=== PATIENT | female | born 1950 | race Two or more races ===

== ENCOUNTER 2018-03-01 22:03 | Emergency (ER) | payer MEDICAID ==
[~2018-03-01] VITALS: Ht 157.5 cm; Wt 54.0 kg
[2018-03-01] MEDS ORDERED: NAPROXEN500 M2 ORAL (22:15)
[2018-03-01] MEDS ORDERED: VITAMIN B COMP1 EAC2 ORAL (22:15)
[2018-03-01] MEDS ORDERED: LISINOPRIL5 MG ORAL (22:15)
[2018-03-01] MEDS ORDERED: METFORMIN HCL500 M1 ORAL (22:15)
--- NOTE | 2018-03-01 22:25 | Emergency Room Report ---
History of Present Illness General Chief Complaint: Hypertension Source: Patient, Family Member Present Illness HPI This is 67-year-old female with history hypertension diabetes. She presents with chief complaint of high blood pressure and right neck pain. Her blood pressure usually runs around 1 5160 systolic at home. Today went up to 180- 200. She also has his neck and right ear pain for the last 2 weeks. Unknown etiology. No runny nose no congestion. Pain is throbbing in nature. Radiating up to her head. She has no chest pain, shortness of breath, diaphoresis, abdominal pain or hematuria. Has not take anything for it. She is only taking 10 mg of lisinopril for her blood pressure. Has been on it for 6 weeks. Allergies: Coded Allergies: No Known Allergies (Unverified , 03/01/18) Patient History Past Medical History: see triage record, old chart reviewed, DM, HTN Past Surgical History: other Pertinent Family History: none Social History: Denies: smoking Now: No Immunizations: other Reviewed Nursing Documentation: PMH: Agreed; PSxH: Agreed Nursing Documentation-PMH Past Medical History: No History, Except For Hx Hypertension: Yes Hx Diabetes: Yes Review of Systems Eye: Denies: eye pain, blurred vision ENT: Reports: ear pain; Denies: nose congestion, throat swelling Respiratory: Denies: cough, shortness of breath Cardiovascular: Denies: chest pain, palpitations Gastrointestinal: Denies: abdominal pain, diarrhea, nausea, vomiting Musculoskeletal: Denies: back pain, joint pain Skin: Denies: rash Neurological: Reports: headache; Denies: numbness Endocrine: Denies: increased thirst, increased urine Hematologic/Lymphatic: Denies: easy bruising All Other Systems: negative except mentioned in HPI Physical Exam Vital Signs Date Time Temp Pulse Resp B/P (MAP) Pulse Ox O2 Delivery O2 Flow Rate FiO2 03/01/18 22:08 97.9 71 16 206/84 98 Room Air 97.9 vitals with high blood pressure Sp02 EP Interpretation: reviewed, normal General Appearance: well appearing, no apparent distress, alert Head: normocephalic, atraumatic Eyes: bilateral eye PERRL, bilateral eye EOMI ENT: hearing grossly normal, normal pharynx, other - no palpable mass over the temporal area. No tenderness over the mastoid area Neck: full range of motion, supple, no meningismus Respiratory: chest non-tender, lungs clear, normal breath sounds Cardiovascular #1: regular rate, rhythm, no murmur Gastrointestinal: normal bowel sounds, non tender, no mass, no organomegaly, no bruit, non-distended Musculoskeletal: back normal, gait/station normal, normal range of motion Psychiatric: mood/affect normal Skin: warm/dry Medical Decision Making Diagnostic Impression: Primary Impression: Hypertension Qualified Codes: I10 - Essential (primary) hypertension Additional Impressions: Hyperglycemia due to type 2 diabetes mellitus Qualified Codes: E11.65 - Type 2 diabetes mellitus with hyperglycemia Neck pain on right side UTI (urinary tract infection) Qualified Codes: N30.00 - Acute cystitis without hematuria ER Course Patient with uncontrolled hypertension and diabetes. Better now after IV fluid and medicine. No evidence of endorgan damage. We will discharge home. Last Vital Signs Date Time Temp Pulse Resp B/P (MAP) Pulse Ox O2 Delivery O2 Flow Rate FiO2 03/01/18 22:08 97.9 71 16 206/84 98 Room Air 97.9 Status: improved Disposition: HOME, SELF-CARE Condition: Stable Scripts Cephalexin* (KEFLEX*) 500 Mg Capsule 500 MG ORAL TID, #21 CAP Prov: DOLORES CANAS M.D. 03/02/18 Ibuprofen* (MOTRIN*) 600 Mg Tablet 600 MG ORAL THREE TIMES A DAY, #30 TAB 0 Refills Prov: DOLORES CANAS M.D. 03/02/18 Metformin Hcl* (METFORMIN HCL*) 850 Mg Tablet 850 MG ORAL BID, #60 TAB Prov: DOLORES CANAS M.D. 03/02/18 Lisinopril (LISINOPRIL*) 20 Mg Tablet 20 MG ORAL DAILY, #30 TAB Prov: DOLORES CANAS M.D. 03/02/18 Additional Instructions: Follow-up with your doctor in 7 days. Return if symptom worsen. DOLORES CANAS M.D. March 01, 2018 22:25
[2018-03-01 22:30] VITALS: BP 209/88
[2018-03-01] MEDS ORDERED: Ketorolac 30mg Inj IV ONE (22:30)
[2018-03-01 23:13] LABS: BILIRUBIN, URINE NEGATIVE (NEGATIVE); COLOR,URINE PALE YELLOW; GLUCOSE, URINE (UA) 4+ (NEGATIVE); KETONES,URINE NEGATIVE (NEGATIVE); LEUKOCYTE ESTERASE ,URINE 3+ (NEGATIVE); NITRITE,URINE NEGATIVE (NEGATIVE); PH,URINE 5 (4.5-8.0); PROTEIN,URINE NEGATIVE (NEGATIVE); UROBILINOGEN,URINE NORMAL MG/DL (0.0-1.0)
[2018-03-01 23:14] LABS: EOSINOPHILS % (AUTO) 3.2 % (0.0-3.0); HEMATOCRIT 34.8 % (37.0-47.0); HEMOGLOBIN 12.2 G/DL (12.0-16.0); LYMPHOCYTES % (AUTO) 33.4 % (20.0-45.0); MEAN CORPUSCULAR VOLUME 87 FL (80-99); MONOCYTES % (AUTO) 7.9 % (1.0-10.0); NEUTROPHILS % (AUTO) 54.6 % (45.0-75.0); PLATELET COUNT 265 K/UL (150-450)
[2018-03-01 23:16] LABS: ANION GAP 6 mmol/L (5-15); BLOOD UREA NITROGEN 31 mg/dL (7-18); CALCIUM 9.1 MG/DL (8.5-10.1); CARBON DIOXIDE 30 MMOL/L (21-32); CHLORIDE 97 MMOL/L (98-107); CREATININE 1.1 MG/DL (0.55-1.30); POTASSIUM 3.9 MMOL/L (3.5-5.1); SODIUM 133 MMOL/L (136-145)
[2018-03-01 23:25] LABS: APPEARANCE,URINE CLOUDY
[2018-03-01 23:30] VITALS: BP 188/82
[2018-03-01] MEDS ORDERED: cefTRIAXone 1 GM in NS 55 ML IVPB ONE (23:45)
[2018-03-02] MEDS ORDERED: LISINOPRIL20 MG ORAL (00:18)
[2018-03-02] MEDS ORDERED: METFORMIN HCL850 M1 ORAL (00:18)
[2018-03-02] MEDS ORDERED: IBUPROFEN600 MG ORAL (00:18)
[2018-03-02] MEDS ORDERED: CEPHALEXIN500 MG ORAL (00:19)
[2018-03-02 00:30] VITALS: BP 124/51
[2018-03-02 00:45] VITALS: BP 124/51
[2018-03-05] MEDS ORDERED: NITROFURANTOIN100 M2 ORAL (14:40)
== END 2018-03-02 00:45 | disposition home or self-care (01) ==
LOC: EMR 22:29
DX: I10 Essential (primary) hypertension (principal); E11.65 Type 2 diabetes mellitus with hyperglycemia; M54.2 Cervicalgia; N39.0 Urinary tract infection, site not specified
CPT/HCPCS: 36415; 80048; 81001; 82962; 85025; 85651; 87086; 87181; 96361; 96374; 96375; 99284; J0360; J0696; J1815; J1885

== ENCOUNTER 2020-06-26 10:37 | Inpatient (IN) | payer MEDICAID ==
[~2020-06-26] VITALS: Ht 154.9 cm; Wt 49.0 kg
[~2020-06-26 10:37] MED LIST: AMLODIPINE BESY10 MG ORAL; AMLODIPINE BESYL5 MG ORAL; CEPHALEXIN500 MG ORAL; IBUPROFEN600 MG ORAL; LIDODERM700 M1 TOPIC; LISINOPRIL20 MG ORAL; LISINOPRIL5 MG ORAL; METFORMIN HCL1000 M1 ORAL; METFORMIN HCL500 M1 ORAL; METFORMIN HCL850 M1 ORAL; NAPROXEN250 MG ORAL; NAPROXEN500 M2 ORAL; NITROFURANTOIN100 M2 ORAL; ROBAXIN-750750 MG PO; VITAMIN B COMP1 EAC2 ORAL
[2020-06-26 10:50] VITALS: BP 167/65
--- NOTE | 2020-06-26 10:53 | Emergency Room Report ---
History of Present Illness General Chief Complaint: Toothache Source: Patient, Family Member Present Illness HPI 62-year-old female with past medical history of DM hypertension presents at the urging of her dental secondary to concern for L facial cellulitis refractory to oral antibiotics. Patient states that she has been having left facial swelling despite using antibiotics (amoxicillin) that her dentist gave her. It was recently changed to keflex. She went to the dentist today (Dr Quan from [facility] [phone]) who urged her to go to the ER for further evaluation. She states that she has pain with chewing and difficulty opening her mouth. Otherwise no shortness of breath, fever, chills, nausea, vomiting, stridor, drooling, or hoarse voice. Denies cough, chest pain, hemoptysis, melena or hematochezia. The patient's symptoms were gradual onset, severity was moderate, duration since 2 weeks. Quality: Aching Past medical history: Hypertension, DM Past surgical history: Dental extraction Smoking: Denies Alcohol use: Denies Drug use: Denies Review of systems: CONST: No fevers or chills, No night sweats PULMONARY: No productive cough, No shortness of breath CARDIAC: No chest pain, No palpitations GI: No vomiting, No diarrhea , No melena_or_BRBPR : No dysuria, No hematuria, No discharge NEURO: No new_focal_weakness_or_numbness, No confusion, No vision changes 14 point Review of Systems is otherwise negative except per HPI Physical Exam: GENERAL: Awake_alert_ nontoxic, no acute distress Spo2 98% on RA -normal EYES: Extraocular muscles are intact. Conjunctivae clear. Lids without swelling ENT: External nose and ear normal_in_appearance. Oropharynx clear. Head_ atraumatic, Moist_oral_mucosa L facial cellulitis Mild trismus. Left facial swelling. No submandibular swelling. No submandibular crepitus. Tolerating secretions. No drooling. No hoarse voice or stridor. Speaks in full and complete sentences. NECK: No JVD. No meningismus. No thyromegaly. Supple. Trachea midline RESP: Normal respiratory effort. Symmetric rise. No stridor. Clear_to_ auscultation_No_rales_No_wheezes CARDIAC: Regular rate and regular rhytm. No_significant pedal edema. ABDOMEN: Soft. Nondistended. Nontender_No_rebound_or_guarding. MSK: Normal muscle tone, without rigidity. Extremities without asymmetric deformity or swelling. SKIN: Warm and dry. No visible cyanosis or pallor NEUROLOGIC: Alert, oriented x3. Motor_and_sensation_grossly_intact. No truncal ataxia. Gait_normal Psych: Normal mood and affect, normal judgment and insight - COORDINATION OF CARE Case was discussed with: Patient , Patient's Family Any labs and imaging that were ordered were interpreted as part of the medical decision making: Medical Decision Making/Plan: Differential diagnosis: Left facial swelling secondary to mastoiditis versus dental abscess versus facial abscess versus parotitis. Initial vital signs are unremarkable. Airway is intact, however patient has mild trismus There is no evidence of deep space neck infection or submandibular edema/ swelling. There is no evidence at this time of Rey's angina. Airway is intact I called patient's dentist Dr Quan at [facility] [phone]. States patient had dental extraction 5 days ago. Pt came today and still had swelling and pain of lower left jaw despite keflex ABx. Labs show no severe leukocytosis. CT scan of the maxillofacial shows no discrete abscess, oseto. It does show myositis and lymphadenopathy +/- myositis. ED intervention included clindamycin for anaerobic coverage, pain control, and fluids. Due to failure of outpatient treatment, will admit to IM DR Phillips for IV antibiotics. Allergies: Coded Allergies: No Known Allergies (Unverified , 03/01/18) COVID-19 Screening Contact w/high risk pt: No Experienced COVID-19 symptoms?: No COVID-19 Testing performed PROJECT GEOPHYSICIST: No Nursing Documentation-PMH Hx Hypertension: Yes Hx Asthma: Yes Hx Diabetes: Yes Physical Exam Vital Signs Date Time Temp Pulse Resp B/P (MAP) Pulse Ox O2 Delivery O2 Flow Rate FiO2 06/26/20 10:43 98.4 68 17 167/65 (99) 98 Room Air Sp02 EP Interpretation: reviewed, normal Procedures Critical Care Time Critical Care Time Critical Care Statement Organ systems at risk include: ENT, circulatory Critical care performed for 45 minutes. Time is exclusive of separately billable procedures. Time includes: direct patient care, continuous monitoring and multiple patient reassessment, coordination of patient care, review of patient's medical records , medical consultation, family consultation regarding treatment decisions and documentation of patient care. Medical Decision Making Diagnostic Impression: Primary Impression: Facial swelling Additional Impressions: Facial cellulitis Myositis Diabetes CT/MRI/US Diagnostic Results CT/MRI/US Diagnostic Results : Impression CT Neck w Contrast Indication: Left facial and neck swelling for 2 weeks Technique: IV administration nonionic contrast. Spiral acquisitions obtained through the neck. Multiplanar reconstructions were generated. Total dose length product 511 mGycm. CTDIvol(s) 52, 101, 14 mGy. Dose reduction achieved using automated exposure control Comparison: none Findings: The nasopharynx, oropharynx, hypopharynx, larynx are unremarkable. No significant tonsillar swelling demonstrated. No rim-enhancing fluid collection to suggest abscess is demonstrated. The temporomandibular joints are unremarkable. There is questionably some asymmetric slight swelling of the left sternocleidomastoid muscle. There is evidence of multiple prior dental extractions. The sinuses demonstrate minimal mucosal thickening bilaterally. No air-fluid levels demonstrated. The parapharyngeal spaces are clear bilaterally. No cervical mass or adenopathy. The salivary glands are unremarkable. The included upper lungs are clear except for some scarring at the right lung apex. Impression: Questionable slight swelling of the left sternocleidomastoid muscle as compared to contralateral side, could indicate myositis. Correlate with clinical findings No evidence of abscess Minimal sinus disease Reevaluation Time: 13:31 Last Vital Signs Date Time Temp Pulse Resp B/P (MAP) Pulse Ox O2 Delivery O2 Flow Rate FiO2 06/26/20 10:50 98.4 68 17 167/65 98 Room Air Status: unchanged Disposition: ADMITTED INPATIENT Admit Decision Time: 13:00 Condition: Stable - Yolanda Bautista D.O. Jun 26, 2020 10:53
[2020-06-26] MEDS ORDERED: dexAMETHasone 10mg/ml Inj IV ONE (11:15)
[2020-06-26] MEDS ORDERED: Omnipaque-300 100ml vial INJ ONE (11:15)
[2020-06-26] MEDS ORDERED: Clindamycin 600mg 50 ML IVPB ONE (11:15)
[2020-06-26 11:36] LABS: APPEARANCE,URINE CLEAR; BILIRUBIN, URINE NEGATIVE (NEGATIVE); COLOR,URINE PALE YELLOW; EOSINOPHILS % (AUTO) 2.7 % (0.0-3.0); GLUCOSE, URINE (UA) NEGATIVE (NEGATIVE); HEMATOCRIT 33.3 % (37.0-47.0); HEMOGLOBIN 10.7 G/DL (12.0-16.0); KETONES,URINE NEGATIVE (NEGATIVE); LEUKOCYTE ESTERASE ,URINE 1+ (NEGATIVE); LYMPHOCYTES % (AUTO) 20.6 % (20.0-45.0); MEAN CORPUSCULAR VOLUME 88 FL (80-99); MONOCYTES % (AUTO) 7.7 % (1.0-10.0); NITRITE,URINE NEGATIVE (NEGATIVE); PH,URINE 5 (4.5-8.0); PLATELET COUNT 413 K/UL (150-450); PROTEIN,URINE NEGATIVE (NEGATIVE); RED CELL DISTRIBUTION WIDTH 12.3 % (11.6-14.8); UROBILINOGEN,URINE NORMAL MG/DL (0.0-1.0); WHITE BLOOD COUNT 8.1 K/UL (4.8-10.8)
[2020-06-26 11:54] LABS: ANION GAP 8 mmol/L (5-15); BLOOD UREA NITROGEN 25 mg/dL (7-18); CALCIUM 9.6 MG/DL (8.5-10.1); CARBON DIOXIDE 29 MMOL/L (21-32); CHLORIDE 100 MMOL/L (98-107); POTASSIUM 4.5 MMOL/L (3.5-5.1); SODIUM 137 MMOL/L (136-145)
[2020-06-26 11:58] LABS: ALANINE AMINOTRANSFERASE 25 U/L (12-78); ALBUMIN 3.7 G/DL (3.4-5.0); ALBUMIN/GLOBULIN RATIO 0.8 (1.0-2.7); ALKALINE PHOSPHATASE 73 U/L (46-116); ASPARTATE AMINO TRANSFERASE 19 U/L (15-37); BILIRUBIN,TOTAL 0.2 MG/DL (0.2-1.0)
[2020-06-26 12:50] VITALS: BP 164/68
--- NOTE | 2020-06-26 13:09 | Diagnostic Imaging Report ---
Indication: Left facial and neck swelling for 2 weeks Technique: IV administration nonionic contrast. Spiral acquisitions obtained through the neck. Multiplanar reconstructions were generated. Total dose length product 511 mGycm. CTDIvol(s) 52, 101, 14 mGy. Dose reduction achieved using automated exposure control Comparison: none Findings: The nasopharynx, oropharynx, hypopharynx, larynx are unremarkable. No significant tonsillar swelling demonstrated. No rim-enhancing fluid collection to suggest abscess is demonstrated. The temporomandibular joints are unremarkable. There is questionably some asymmetric slight swelling of the left sternocleidomastoid muscle. There is evidence of multiple prior dental extractions. The sinuses demonstrate minimal mucosal thickening bilaterally. No air-fluid levels demonstrated. The parapharyngeal spaces are clear bilaterally. No cervical mass or adenopathy. The salivary glands are unremarkable. The included upper lungs are clear except for some scarring at the right lung apex. Impression: Questionable slight swelling of the left sternocleidomastoid muscle as compared to contralateral side, could indicate myositis. Correlate with clinical findings No evidence of abscess Minimal sinus disease The CT scanner at [facility] is accredited by the [employer] and the scans are performed using protocols designed to limit radiation exposure to as low as reasonably achievable to attain images of sufficient resolution adequate for diagnostic evaluation.
[2020-06-26] MEDS ORDERED: Albuterol/Ipratropium 3ml neb HHN PRN (14:15)
[2020-06-26] MEDS ORDERED: Nitroglycerin Subl 0.4mg tab SL PRN (14:15)
[2020-06-26] MEDS ORDERED: Miralax 17gm pkt ORAL PRN (14:15)
[2020-06-26 16:00] VITALS: BP 179/78
[2020-06-26] MEDS ORDERED: Cefepime HCl 2 GM in NS 110 ML IV ONE (16:00)
[2020-06-26] MEDS: NovoLOG Insulin Flexpen SUBQ SCH ×2 (17:01→20:55)
[2020-06-26] MEDS ORDERED: Vancomycin 1 GM in D5W 275 ML IVPB ONE (18:00)
[2020-06-26 18:40] VITALS: BP 121/55
--- NOTE | 2020-06-26 18:52 | History & Physical ---
History and Physical History & Physicial Dictated for Int Med-Dr Phillips no. [id number]. Sebas Oliveros MD Jun 26, 2020 18:52
[2020-06-26 20:00] VITALS: BP 154/66
--- NOTE | 2020-06-26 20:00 | History and Physical Report ---
DATE OF ADMISSION: 06/26/2020 HISTORY OF PRESENT ILLNESS: The patient is a 70-year-old female who presents with a chief complaint of left-sided facial swelling. History of present illness began approximately 2 weeks ago. The patient was seen by her dentist. The patient was given amoxicillin for tooth infection. The patient returned to see her dentist. The swelling and pain had gotten worse. The patient was given Keflex for presumed left-sided facial cellulitis. The patient continues to have increased swelling and pain of her left face. The patient then went to see her dentist today, June 26, 2020. The patient was told to go to the emergency room due to failure to progress from the cellulitis of the face. The patient presented to [facility]. The patient was admitted with left-sided facial cellulitis to rule out acute mastoiditis. REVIEW OF SYSTEMS: CONSTITUTIONAL: The patient denies weight loss or gain. The patient denies fevers or chills. HEENT: The patient denies ear or throat pain. The patient denies headache. CARDIOVASCULAR: The patient denies palpitations or chest pain. CHEST: The patient denies wheeze or shortness of breath. ABDOMINAL: The patient denies nausea, vomiting, diarrhea, or constipation. GENITOURINARY: The patient denies dysuria or increased frequency of urination. NEUROMUSCULAR: The patient denies seizures or generalized weakness. PAST MEDICAL HISTORY: Significant for: 1. Type 2 diabetes. 2. Hypertension. PAST SURGICAL HISTORY: The patient denies. CURRENT MEDICATIONS: 1. Amlodipine 10 mg 1 tablet p.o. daily. 2. Metformin 1000 mg p.o. twice daily. 3. Naproxen 500 mg p.o. twice daily. 4. Keflex of unknown dose 4 times daily. ALLERGIES: No known drug allergies. SOCIAL HISTORY: The patient is a and lives alone. The patient denies tobacco or alcohol use. PHYSICAL EXAMINATION: VITAL SIGNS: Temperature 98.2, respirations 18, pulse 65, blood pressure 164/68. GENERAL: The patient is a well-developed, well-nourished female, in no apparent distress. HEENT: Eyes, pupils equal and responsive to light and accommodation. Extraocular movements are intact. NECK: Supple. No lymphadenopathy. CHEST: Lungs are clear to auscultation bilaterally without wheezes or rales. CARDIOVASCULAR: Regular rate. S1, S2 normal without murmurs, rubs, or gallops. ABDOMEN: Soft, nontender, and nondistended. Positive bowel sounds. No evidence of hepatosplenomegaly. Currently no rebound or guarding noted. EXTREMITIES: Negative for clubbing, cyanosis, or edema. RECTAL/GENITAL: Not performed. NEUROLOGIC: Cranial nerves II through XII are grossly intact without focal deficits. Motor strength is 5/5 bilaterally. Deep tendon reflexes are 2+, plantar. A CT scan of the neck with contrast revealed swelling of the left sternocleidomastoid muscle as compared to the right, consistent with myositis. LABORATORY STUDIES: WBC 8.1, hemoglobin 10.7, hematocrit 33.3, platelets 413,000. Sodium 137, potassium 4.5, chloride 100, CO2 29, BUN 25, creatinine 1.0, glucose 167. ASSESSMENT: This is a 70-year-old female. 1. Left facial cellulitis. 2. Hypertension. 3. Diabetes type 2. TREATMENT: 1. Left facial cellulitis. The patient has been started empirically on intravenous vancomycin and cefepime. An infectious disease consultation has been obtained with Dr. Gray. We will follow recommendations of Infectious Disease. 2. Hypertension. Continue amlodipine as above. 3. Diabetes type 2. NovoLog sliding scale has been instituted. Sebas Oliveros M.D. DR: HOSSEIN JOB#: [id number] CC:
[2020-06-26] MEDS: Heparin 5000 units/ml inj SUBQ SCH (20:49)
[2020-06-27] VITALS (7 sets, daily range): BP systolic 122–175; BP diastolic 61–72
[2020-06-27] MEDS ORDERED: Cefepime HCl 2 GM in NS 110 ML IV SCH (04:00)
[2020-06-27 07:15] LABS: BASOPHILS % (AUTO) 0.5 % (0.0-2.0); HEMATOCRIT 30.1 % (37.0-47.0); HEMOGLOBIN 9.9 G/DL (12.0-16.0); LYMPHOCYTES % (AUTO) 10.4 % (20.0-45.0); MEAN CORPUSCULAR VOLUME 87 FL (80-99); MONOCYTES % (AUTO) 5.9 % (1.0-10.0); NEUTROPHILS % (AUTO) 82.2 % (45.0-75.0); PLATELET COUNT 372 K/UL (150-450); RED BLOOD COUNT 3.45 M/UL (4.20-5.40); RED CELL DISTRIBUTION WIDTH 12.2 % (11.6-14.8); WHITE BLOOD COUNT 8.4 K/UL (4.8-10.8)
[2020-06-27] MEDS: NovoLOG Insulin Flexpen SUBQ SCH ×4 (07:17→21:35)
[2020-06-27 07:36] LABS: ALANINE AMINOTRANSFERASE 21 U/L (12-78); ALBUMIN/GLOBULIN RATIO 0.7 (1.0-2.7); ALKALINE PHOSPHATASE 55 U/L (46-116); ANION GAP 10 mmol/L (5-15); ASPARTATE AMINO TRANSFERASE 18 U/L (15-37); BILIRUBIN,TOTAL 0.3 MG/DL (0.2-1.0); BLOOD UREA NITROGEN 23 mg/dL (7-18); CALCIUM 8.9 MG/DL (8.5-10.1); CARBON DIOXIDE 25 MMOL/L (21-32); CHLORIDE 103 MMOL/L (98-107); POTASSIUM 4.7 MMOL/L (3.5-5.1); SODIUM 138 MMOL/L (136-145)
[2020-06-27] MEDS: Heparin 5000 units/ml inj SUBQ SCH ×2 (08:25→21:32)
--- NOTE | 2020-06-27 12:00 | Consultation ---
History of Present Illness General Date patient seen: Jun 27, 2020 Chief Complaint: Toothache Present Illness HPI 62 y/o F with hx of Dm2, HTN, asthma presented to ED on 06/26 with wit worsening L facial cellulitis 2ry to dental infection despite oral antibiotics; was sent by dentist. Patient has been having L facial swelling and pain despite amoxicillin that her dentist gave her; was recently switched to Keflex. She has pain with chewing and difficulty opening her mouth. Issue started about 2 weeks ago. Denied SOB, f/c, n/v/d, stridor, drooling or hoarse voice, cough. Allergies: Coded Allergies: No Known Allergies (Unverified , 03/01/18) Medication History Scheduled Amlodipine Besylate* (Amlodipine Besylate*), 10 MG ORAL DAILY, (Reported) Amlodipine Besylate* (Amlodipine Besylate*), 5 MG ORAL DAILY Lidocaine Patch* (Lidoderm Patch*), 1 PATCH TOPIC DAILY Metformin Hcl* (Metformin Hcl*), 1,000 MG ORAL DAILY, (Reported) Methocarbamol* (Robaxin-750*), 750 MG PO QID Scheduled PRN Naproxen* (Naprosyn*), 250 MG ORAL BID PRN for For Pain Patient History Healthcare decision maker Resuscitation status Advanced Directive on File Patient History Narrative Pmhx: as above Shx: The patient is a and lives alone. The patient denies tobacco or alcohol use. Fhx: non contributory Review of Systems All Other Systems: negative except mentioned in HPI Physical Exam Physical Exam Narrative GENERAL: The patient is a well-developed, well-nourished female, in no apparent distress. HEENT: Eyes, pupils equal and responsive to light and accommodation. Extraocular movements are intact. L side face with hard swelling and TTP, erythematous NECK: Supple. No lymphadenopathy. CHEST: Lungs are clear to auscultation bilaterally without wheezes or rales. CARDIOVASCULAR: Regular rate. S1, S2 normal without murmurs, rubs, or gallops. ABDOMEN: Soft, nontender, and nondistended. Positive bowel sounds. No evidence of hepatosplenomegaly. Currently no rebound or guarding noted. EXTREMITIES: Negative for clubbing, cyanosis, or edema. Last 24 Hour Vital Signs Date Time Temp Pulse Resp B/P (MAP) Pulse Ox O2 Delivery O2 Flow Rate FiO2 06/27/20 09:00 Room Air 06/27/20 08:25 63 159/64 06/27/20 08:00 98.2 68 18 159/64 (95) 99 06/27/20 04:00 97.5 68 18 122/63 (82) 99 06/27/20 00:00 98.0 83 18 136/72 (93) 98 06/26/20 21:00 Room Air 06/26/20 20:00 98.4 72 18 154/66 (95) 99 06/26/20 18:40 121/55 (77) 06/26/20 16:16 179/78 06/26/20 16:00 97.5 86 18 179/78 (111) 98 06/26/20 15:49 Room Air 06/26/20 14:35 98.1 67 18 159/72 100 Room Air 06/26/20 12:50 98.2 65 18 164/68 99 Room Air Intake and Output 06/26/20 06/27/20 19:00 07:00 Intake Total 100 ml 420 ml Balance 100 ml 420 ml Intake Oral 0 ml 420 ml Other 100 ml # Voids 3 # Bowel Movements 1 Laboratory Tests Test 06/26/20 16:25 06/27/20 05:50 POC Whole Blood Glucose 202 MG/DL (74-106) H White Blood Count 8.4 K/UL (4.8-10.8) Red Blood Count 3.45 M/UL (4.20-5.40) L Hemoglobin 9.9 G/DL (12.0-16.0) L Hematocrit 30.1 % (37.0-47.0) L Mean Corpuscular Volume 87 FL (80-99) Mean Corpuscular Hemoglobin 28.7 PG (27.0-31.0) Mean Corpuscular Hemoglobin Concent 32.9 G/DL (32.0-36.0) Red Cell Distribution Width 12.2 % (11.6-14.8) Platelet Count 372 K/UL (150-450) Mean Platelet Volume 6.6 FL (6.5-10.1) Neutrophils (%) (Auto) 82.2 % (45.0-75.0) H Lymphocytes (%) (Auto) 10.4 % (20.0-45.0) L Monocytes (%) (Auto) 5.9 % (1.0-10.0) Eosinophils (%) (Auto) 1.0 % (0.0-3.0) Basophils (%) (Auto) 0.5 % (0.0-2.0) Sodium Level 138 MMOL/L (136-145) Potassium Level 4.7 MMOL/L (3.5-5.1) Chloride Level 103 MMOL/L (98-107) Carbon Dioxide Level 25 MMOL/L (21-32) Anion Gap 10 mmol/L (5-15) Blood Urea Nitrogen 23 mg/dL (7-18) H Creatinine 1.0 MG/DL (0.55-1.30) Estimat Glomerular Filtration Rate 55.1 mL/min (>60) Glucose Level 137 MG/DL (74-106) H Calcium Level 8.9 MG/DL (8.5-10.1) Total Bilirubin 0.3 MG/DL (0.2-1.0) Aspartate Amino Transf (AST/SGOT) 18 U/L (15-37) Alanine Aminotransferase (ALT/SGPT) 21 U/L (12-78) Alkaline Phosphatase 55 U/L (46-116) Total Protein 7.1 G/DL (6.4-8.2) Albumin 3.0 G/DL (3.4-5.0) L Globulin 4.1 g/dL Albumin/Globulin Ratio 0.7 (1.0-2.7) L Microbiology Date/Time Source Procedure Growth Status 06/26/20 13:40 Nasopharynx SARS-CoV-2 RdRp Gene Assay - Final Complete Height (Feet): 5 Height (Inches): 1.00 Weight (Pounds): 110 Medications Current Medications Medications (Trade) Dose Ordered Sig/Crystal Route PRN Reason Start Time Stop Time Status Last Admin Dose Admin Acetaminophen (Tylenol) 650 mg Q4H PRN ORAL fever 06/26/20 14:15 07/26/20 14:14 Albuterol/ Ipratropium (Albuterol/ Ipratropium) 3 ml Q4H PRN HHN Shortness of Breath 06/26/20 14:15 07/01/20 14:14 Amlodipine Besylate (Norvasc) 5 mg DAILY ORAL 06/27/20 09:00 07/27/20 08:59 06/27/20 08:25 Cefepime HCl 2 gm/ Sodium Chloride 110 ml @ 220 mls/hr Q24H IV 06/27/20 04:00 07/04/20 03:59 06/27/20 04:29 Clonidine HCl (Catapres Tab) 0.1 mg Q6H PRN ORAL For High Blood Pressure 06/26/20 15:45 09/24/20 15:44 06/26/20 16:16 Dextrose (Dextrose 50%) 25 ml Q30M PRN IV Hypoglycemia 06/26/20 14:15 09/24/20 14:14 Dextrose (Dextrose 50%) 50 ml Q30M PRN IV Hypoglycemia 06/26/20 14:15 09/24/20 14:14 Heparin Sodium (Porcine) (Heparin 5000 units/ml) 5,000 units EVERY 12 HOURS SUBQ 06/26/20 21:00 08/10/20 20:59 06/27/20 08:25 Insulin Aspart (NovoLOG) BEFORE MEALS AND HS SUBQ 06/26/20 16:30 09/24/20 16:29 06/27/20 07:17 Nitroglycerin (Ntg) 0.4 mg Q5M PRN SL Prn Chest Pain 06/26/20 14:15 07/26/20 14:14 Ondansetron HCl (Zofran) 4 mg Q6H PRN IVP Nausea & Vomiting 06/26/20 14:15 07/26/20 14:14 Polyethylene Glycol (Miralax) 17 gm DAILYPRN PRN ORAL Constipation 06/26/20 14:15 07/26/20 14:14 Temazepam (Restoril) 15 mg HSPRN PRN ORAL Insomnia 06/26/20 14:15 07/03/20 14:14 Vancomycin HCl (Vanco pharmacy to dose) 1 ea DAILY PRN MISC per rx protocol 06/26/20 14:30 07/26/20 14:29 Vancomycin HCl 500 mg/Sodium Chloride 110 ml @ 110 mls/hr Q24H IVPB 06/27/20 18:00 07/02/20 17:59 Assessment/Plan Assessment/Plan: Abx: Clindamycin x1 06/26 IV Vancomycin 06/26- Cefepime 06/26- Assessment: L face cellulitis 2ry to tooth infection (failed oral antibiotics)- probable abscess -CT neck w/: Questionable slight swelling of the left sternocleidomastoid muscle as compared to contralateral side, could indicate myositis. Correlate with clinical findings. No evidence of abscess. Minimal sinus disease Afebrile No leukocytosis Dm2 HTN asthma Plan: -Continue empiric IV Vancomycin #2 and switch Cefepime #2 to IV Unasyn -f/u cx -Monitor CBC/CMP, temperatures -CT face w/ to eval for abscess -May need ENT eval -aspiration precautions Thank you for this consultation. Will continue to follow along with you. Discussed with Opal Jaffe M.D. Jun 27, 2020 12:00
--- NOTE | 2020-06-27 12:43 | Internal Med Progress Note ---
Subjective Date of Service: Jun 27, 2020 Physician Name Sebas Oliveros Attending Physician Nish Phillips MD Current Medications Medications (Trade) Dose Ordered Sig/Crystal Route PRN Reason Start Time Stop Time Status Last Admin Dose Admin Acetaminophen (Tylenol) 650 mg Q4H PRN ORAL fever 06/26/20 14:15 07/26/20 14:14 Albuterol/ Ipratropium (Albuterol/ Ipratropium) 3 ml Q4H PRN HHN Shortness of Breath 06/26/20 14:15 07/01/20 14:14 Amlodipine Besylate (Norvasc) 5 mg DAILY ORAL 06/27/20 09:00 07/27/20 08:59 06/27/20 08:25 Cefepime HCl 2 gm/ Sodium Chloride 110 ml @ 220 mls/hr Q24H IV 06/27/20 04:00 07/04/20 03:59 06/27/20 04:29 Clonidine HCl (Catapres Tab) 0.1 mg Q6H PRN ORAL For High Blood Pressure 06/26/20 15:45 09/24/20 15:44 06/26/20 16:16 Dextrose (Dextrose 50%) 25 ml Q30M PRN IV Hypoglycemia 06/26/20 14:15 09/24/20 14:14 Dextrose (Dextrose 50%) 50 ml Q30M PRN IV Hypoglycemia 06/26/20 14:15 09/24/20 14:14 Heparin Sodium (Porcine) (Heparin 5000 units/ml) 5,000 units EVERY 12 HOURS SUBQ 06/26/20 21:00 08/10/20 20:59 06/27/20 08:25 Insulin Aspart (NovoLOG) BEFORE MEALS AND HS SUBQ 06/26/20 16:30 09/24/20 16:29 06/27/20 07:17 Nitroglycerin (Ntg) 0.4 mg Q5M PRN SL Prn Chest Pain 06/26/20 14:15 07/26/20 14:14 Ondansetron HCl (Zofran) 4 mg Q6H PRN IVP Nausea & Vomiting 06/26/20 14:15 07/26/20 14:14 Polyethylene Glycol (Miralax) 17 gm DAILYPRN PRN ORAL Constipation 06/26/20 14:15 07/26/20 14:14 Temazepam (Restoril) 15 mg HSPRN PRN ORAL Insomnia 06/26/20 14:15 07/03/20 14:14 Vancomycin HCl (Vanco pharmacy to dose) 1 ea DAILY PRN MISC per rx protocol 06/26/20 14:30 07/26/20 14:29 Vancomycin HCl 500 mg/Sodium Chloride 110 ml @ 110 mls/hr Q24H IVPB 06/27/20 18:00 07/02/20 17:59 Allergies: Coded Allergies: No Known Allergies (Unverified , 03/01/18) ROS Limited/Unobtainable: No Constitutional: Reports: no symptoms HEENT: Reports: no symptoms Cardiovascular: Reports: no symptoms Respiratory: Reports: no symptoms Gastrointestinal/Abdominal: Reports: no symptoms Genitourinary: Reports: no symptoms Neurologic/Psychiatric: Reports: no symptoms Subjective 70 YO F admitted with left facial swelling. Now cellulitis left face. Cover for Int Angel-Dr Phillips Objective Last Vital Signs Date Time Temp Pulse Resp B/P (MAP) Pulse Ox O2 Delivery O2 Flow Rate FiO2 06/27/20 12:00 97.7 63 18 158/69 (98) 99 06/27/20 09:00 Room Air Laboratory Tests Test 06/26/20 16:25 06/27/20 05:50 POC Whole Blood Glucose 202 MG/DL (74-106) H White Blood Count 8.4 K/UL (4.8-10.8) Red Blood Count 3.45 M/UL (4.20-5.40) L Hemoglobin 9.9 G/DL (12.0-16.0) L Hematocrit 30.1 % (37.0-47.0) L Mean Corpuscular Volume 87 FL (80-99) Mean Corpuscular Hemoglobin 28.7 PG (27.0-31.0) Mean Corpuscular Hemoglobin Concent 32.9 G/DL (32.0-36.0) Red Cell Distribution Width 12.2 % (11.6-14.8) Platelet Count 372 K/UL (150-450) Mean Platelet Volume 6.6 FL (6.5-10.1) Neutrophils (%) (Auto) 82.2 % (45.0-75.0) H Lymphocytes (%) (Auto) 10.4 % (20.0-45.0) L Monocytes (%) (Auto) 5.9 % (1.0-10.0) Eosinophils (%) (Auto) 1.0 % (0.0-3.0) Basophils (%) (Auto) 0.5 % (0.0-2.0) Sodium Level 138 MMOL/L (136-145) Potassium Level 4.7 MMOL/L (3.5-5.1) Chloride Level 103 MMOL/L (98-107) Carbon Dioxide Level 25 MMOL/L (21-32) Anion Gap 10 mmol/L (5-15) Blood Urea Nitrogen 23 mg/dL (7-18) H Creatinine 1.0 MG/DL (0.55-1.30) Estimat Glomerular Filtration Rate 55.1 mL/min (>60) Glucose Level 137 MG/DL (74-106) H Calcium Level 8.9 MG/DL (8.5-10.1) Total Bilirubin 0.3 MG/DL (0.2-1.0) Aspartate Amino Transf (AST/SGOT) 18 U/L (15-37) Alanine Aminotransferase (ALT/SGPT) 21 U/L (12-78) Alkaline Phosphatase 55 U/L (46-116) Total Protein 7.1 G/DL (6.4-8.2) Albumin 3.0 G/DL (3.4-5.0) L Globulin 4.1 g/dL Albumin/Globulin Ratio 0.7 (1.0-2.7) L Microbiology Date/Time Source Procedure Growth Status 06/26/20 13:40 Nasopharynx SARS-CoV-2 RdRp Gene Assay - Final Complete Intake and Output 06/26/20 06/27/20 19:00 07:00 Intake Total 100 ml 420 ml Balance 100 ml 420 ml Intake Oral 0 ml 420 ml Other 100 ml # Voids 3 # Bowel Movements 1 Objective PHYSICAL EXAMINATION: GENERAL: The patient is a well-developed, well-nourished female, in no apparent distress. HEENT: Eyes, pupils equal and responsive to light and accommodation. Extraocular movements are intact. Left facial swelling and erythema NECK: Supple. No lymphadenopathy. CHEST: Lungs are clear to auscultation bilaterally without wheezes or rales. CARDIOVASCULAR: Regular rate. S1, S2 normal without murmurs, rubs, or gallops. ABDOMEN: Soft, nontender, and nondistended. Positive bowel sounds. No evidence of hepatosplenomegaly. Currently no rebound or guarding noted. EXTREMITIES: Negative for clubbing, cyanosis, or edema. RECTAL/GENITAL: Not performed. NEUROLOGIC: Cranial nerves II through XII are grossly intact without focal deficits. Motor strength is 5/5 bilaterally. Deep tendon reflexes are 2+, plantar. Assessment/Plan Assessment/Plan ASSESSMENT: This is a 70-year-old female. 1. Left facial cellulitis. 2. Hypertension. 3. Diabetes type 2. 4. Tooth infection-failed oral antibiotic TREATMENT: 1. Left facial cellulitis. The patient has been started empirically on intravenous vancomycin and cefepime. An infectious disease consultation has been obtained with Dr. Gray. We will follow recommendations of Infectious Disease. 2. Hypertension. Continue amlodipine as above. 3. Diabetes type 2. NovoLog sliding scale has been instituted. Sebas Oliveros MD Jun 27, 2020 12:43
[2020-06-27] MEDS ORDERED: Omnipaque-300 100ml vial INJ PRN (16:15)
[2020-06-27] MEDS: Vancomycin 500 MG in NS 110 ML IVPB SCH (17:17)
[2020-06-27] MEDS: Ampicillin/Sulbactam Sod 3 GM in NS 110 ML IVPB SCH (18:24)
[2020-06-28] VITALS: BP 146/79
[2020-06-28] MEDS: Ampicillin/Sulbactam Sod 3 GM in NS 110 ML IVPB SCH ×4 (01:00→17:02)
[2020-06-28 04:00] VITALS: BP 155/75
[2020-06-28] MEDS: NovoLOG Insulin Flexpen SUBQ SCH ×4 (06:05→21:44)
[2020-06-28 08:00] VITALS: BP 185/77
--- NOTE | 2020-06-28 08:12 | Infectious Diseases Prog Note ---
Assessment/Plan Abx: Clindamycin x1 06/26 IV Vancomycin 06/26- Cefepime 06/26- Assessment: L face cellulitis 2ry to tooth infection (failed oral antibiotics)- probable abscess -CT neck w/: Questionable slight swelling of the left sternocleidomastoid muscle as compared to contralateral side, could indicate myositis. Correlate with clinical findings. No evidence of abscess. Minimal sinus disease Afebrile No leukocytosis DM2 HTN Asthma Plan: -Continue IV Vancomycin #3 -Continue IV Unasyn #2 06/27 SP cefepime #2 -f/u cx -Monitor CBC/CMP, temperatures -CT face w/ to eval for abscess - d/w RN, should have this weekend -May need ENT eval -aspiration precautions Thank you for this consultation. Will continue to follow along with you. Discussed with RN. Subjective Allergies: Coded Allergies: No Known Allergies (Unverified , 03/01/18) AF No leukocytosis NAD on RA Still waiting for CT face Reports L lower face swelling is slightly improved, though still painful and swollen Objective Last 24 Hour Vital Signs Date Time Temp Pulse Resp B/P (MAP) Pulse Ox O2 Delivery O2 Flow Rate FiO2 06/28/20 04:00 97.0 68 18 155/75 (101) 98 06/28/20 00:00 97.7 62 20 146/79 (101) 97 06/27/20 22:22 98.4 06/27/20 21:00 Room Air 06/27/20 20:30 157/61 (93) 06/27/20 20:00 98.1 62 20 175/65 (101) 98 06/27/20 16:00 98.4 63 18 148/67 (94) 99 06/27/20 12:00 97.7 63 18 158/69 (98) 99 06/27/20 09:00 Room Air 06/27/20 08:25 63 159/64 Height (Feet): 5 Height (Inches): 1.00 Weight (Pounds): 110 Gen: NAD HEENT: L lower jaw swollen and TTP, no erythema of the skin Pulm: Breathing comfortably on RA Abd: Soft, NTND Neuro: Awake, alert, interactive Microbiology Date/Time Source Procedure Growth Status 06/26/20 13:40 Nasopharynx SARS-CoV-2 RdRp Gene Assay - Final Complete Current Medications Medications (Trade) Dose Ordered Sig/Crystal Route PRN Reason Start Time Stop Time Status Last Admin Dose Admin Acetaminophen (Tylenol) 650 mg Q4H PRN ORAL fever 06/26/20 14:15 07/26/20 14:14 06/27/20 21:52 Albuterol/ Ipratropium (Albuterol/ Ipratropium) 3 ml Q4H PRN HHN Shortness of Breath 06/26/20 14:15 07/01/20 14:14 Amlodipine Besylate (Norvasc) 5 mg DAILY ORAL 06/27/20 09:00 07/27/20 08:59 06/27/20 08:25 Ampicillin Sodium/ Sulbactam Sodium 3 gm/Sodium Chloride 110 ml @ 220 mls/hr Q6HR IVPB 06/27/20 18:00 07/04/20 17:59 06/28/20 06:00 Clonidine HCl (Catapres Tab) 0.1 mg Q6H PRN ORAL For High Blood Pressure 06/26/20 15:45 09/24/20 15:44 06/26/20 16:16 Dextrose (Dextrose 50%) 25 ml Q30M PRN IV Hypoglycemia 06/26/20 14:15 09/24/20 14:14 Dextrose (Dextrose 50%) 50 ml Q30M PRN IV Hypoglycemia 06/26/20 14:15 09/24/20 14:14 Heparin Sodium (Porcine) (Heparin 5000 units/ml) 5,000 units EVERY 12 HOURS SUBQ 06/26/20 21:00 08/10/20 20:59 06/27/20 21:32 Insulin Aspart (NovoLOG) BEFORE MEALS AND HS SUBQ 06/26/20 16:30 09/24/20 16:29 06/27/20 21:35 Iohexol (OMNIPAQUE-300 100ml) 100 ml ONCE PRN INJ RADIOLOGY 06/27/20 16:15 06/29/20 16:14 Nitroglycerin (Ntg) 0.4 mg Q5M PRN SL Prn Chest Pain 06/26/20 14:15 07/26/20 14:14 Ondansetron HCl (Zofran) 4 mg Q6H PRN IVP Nausea & Vomiting 06/26/20 14:15 07/26/20 14:14 Polyethylene Glycol (Miralax) 17 gm DAILYPRN PRN ORAL Constipation 06/26/20 14:15 07/26/20 14:14 Temazepam (Restoril) 15 mg HSPRN PRN ORAL Insomnia 06/26/20 14:15 07/03/20 14:14 Vancomycin HCl (Vanco pharmacy to dose) 1 ea DAILY PRN MISC per rx protocol 06/26/20 14:30 07/26/20 14:29 Vancomycin HCl 500 mg/Sodium Chloride 110 ml @ 110 mls/hr Q24H IVPB 06/27/20 18:00 07/02/20 17:59 06/27/20 17:17 Vanita Shah M.D. Jun 28, 2020 08:12
[2020-06-28 08:20] LABS: EOSINOPHILS % (AUTO) 7.3 % (0.0-3.0); HEMOGLOBIN 10.3 G/DL (12.0-16.0); LYMPHOCYTES % (AUTO) 27.3 % (20.0-45.0); MEAN CORPUSCULAR VOLUME 87 FL (80-99); MONOCYTES % (AUTO) 8.7 % (1.0-10.0); NEUTROPHILS % (AUTO) 55.7 % (45.0-75.0); PLATELET COUNT 403 K/UL (150-450); RED BLOOD COUNT 3.57 M/UL (4.20-5.40); RED CELL DISTRIBUTION WIDTH 12.5 % (11.6-14.8); WHITE BLOOD COUNT 6.3 K/UL (4.8-10.8)
[2020-06-28 08:49] LABS: ALANINE AMINOTRANSFERASE 16 U/L (12-78); ALBUMIN 3.1 G/DL (3.4-5.0); ALBUMIN/GLOBULIN RATIO 0.7 (1.0-2.7); ALKALINE PHOSPHATASE 62 U/L (46-116); ANION GAP 8 mmol/L (5-15); ASPARTATE AMINO TRANSFERASE 18 U/L (15-37); BILIRUBIN,TOTAL 0.2 MG/DL (0.2-1.0); BLOOD UREA NITROGEN 14 mg/dL (7-18); CALCIUM 9.9 MG/DL (8.5-10.1); CARBON DIOXIDE 29 MMOL/L (21-32); CHLORIDE 103 MMOL/L (98-107); POTASSIUM 3.9 MMOL/L (3.5-5.1); SODIUM 140 MMOL/L (136-145)
[2020-06-28 08:55] LABS: PHOSPHORUS 7.4 MG/DL (2.5-4.9)
[2020-06-28] MEDS: Heparin 5000 units/ml inj SUBQ SCH ×2 (08:58→21:44)
[2020-06-28 11:39] VITALS: BP 130/57
--- NOTE | 2020-06-28 15:04 | Internal Med Progress Note ---
Subjective Date of Service: Jun 28, 2020 Physician Name Sebas Oliveros Attending Physician Nish Phillips MD Current Medications Medications (Trade) Dose Ordered Sig/Crystal Route PRN Reason Start Time Stop Time Status Last Admin Dose Admin Acetaminophen (Tylenol) 650 mg Q4H PRN ORAL fever 06/26/20 14:15 07/26/20 14:14 06/27/20 21:52 Albuterol/ Ipratropium (Albuterol/ Ipratropium) 3 ml Q4H PRN HHN Shortness of Breath 06/26/20 14:15 07/01/20 14:14 Amlodipine Besylate (Norvasc) 5 mg DAILY ORAL 06/27/20 09:00 07/27/20 08:59 06/28/20 08:56 Ampicillin Sodium/ Sulbactam Sodium 3 gm/Sodium Chloride 110 ml @ 220 mls/hr Q6HR IVPB 06/27/20 18:00 07/04/20 17:59 06/28/20 11:22 Clonidine HCl (Catapres Tab) 0.1 mg Q6H PRN ORAL For High Blood Pressure 06/26/20 15:45 09/24/20 15:44 06/28/20 08:56 Dextrose (Dextrose 50%) 25 ml Q30M PRN IV Hypoglycemia 06/26/20 14:15 09/24/20 14:14 Dextrose (Dextrose 50%) 50 ml Q30M PRN IV Hypoglycemia 06/26/20 14:15 09/24/20 14:14 Heparin Sodium (Porcine) (Heparin 5000 units/ml) 5,000 units EVERY 12 HOURS SUBQ 06/26/20 21:00 08/10/20 20:59 06/28/20 08:58 Insulin Aspart (NovoLOG) BEFORE MEALS AND HS SUBQ 06/26/20 16:30 09/24/20 16:29 06/28/20 13:25 Iohexol (OMNIPAQUE-300 100ml) 100 ml ONCE PRN INJ RADIOLOGY 06/27/20 16:15 06/29/20 16:14 Nitroglycerin (Ntg) 0.4 mg Q5M PRN SL Prn Chest Pain 06/26/20 14:15 07/26/20 14:14 Ondansetron HCl (Zofran) 4 mg Q6H PRN IVP Nausea & Vomiting 06/26/20 14:15 07/26/20 14:14 Polyethylene Glycol (Miralax) 17 gm DAILYPRN PRN ORAL Constipation 06/26/20 14:15 07/26/20 14:14 Temazepam (Restoril) 15 mg HSPRN PRN ORAL Insomnia 06/26/20 14:15 07/03/20 14:14 Vancomycin HCl (Vanco pharmacy to dose) 1 ea DAILY PRN MISC per rx protocol 06/26/20 14:30 07/26/20 14:29 Vancomycin HCl 500 mg/Sodium Chloride 110 ml @ 110 mls/hr Q24H IVPB 06/27/20 18:00 07/02/20 17:59 06/27/20 17:17 Allergies: Coded Allergies: No Known Allergies (Unverified , 03/01/18) ROS Limited/Unobtainable: No Constitutional: Reports: no symptoms HEENT: Reports: no symptoms Cardiovascular: Reports: no symptoms Respiratory: Reports: no symptoms Gastrointestinal/Abdominal: Reports: no symptoms Genitourinary: Reports: no symptoms Neurologic/Psychiatric: Reports: no symptoms Subjective 70 YO F admitted with left facial swelling. Now cellulitis left face. Cover for Int Med-Dr Phillips Objective Last Vital Signs Date Time Temp Pulse Resp B/P (MAP) Pulse Ox O2 Delivery O2 Flow Rate FiO2 06/28/20 11:39 98.1 60 16 130/57 (81) 99 06/28/20 09:00 Room Air Laboratory Tests Test 06/28/20 07:10 White Blood Count 6.3 K/UL (4.8-10.8) Red Blood Count 3.57 M/UL (4.20-5.40) L Hemoglobin 10.3 G/DL (12.0-16.0) L Hematocrit 31.0 % (37.0-47.0) L Mean Corpuscular Volume 87 FL (80-99) Mean Corpuscular Hemoglobin 28.9 PG (27.0-31.0) Mean Corpuscular Hemoglobin Concent 33.2 G/DL (32.0-36.0) Red Cell Distribution Width 12.5 % (11.6-14.8) Platelet Count 403 K/UL (150-450) Mean Platelet Volume 6.4 FL (6.5-10.1) L Neutrophils (%) (Auto) 55.7 % (45.0-75.0) Lymphocytes (%) (Auto) 27.3 % (20.0-45.0) Monocytes (%) (Auto) 8.7 % (1.0-10.0) Eosinophils (%) (Auto) 7.3 % (0.0-3.0) H Basophils (%) (Auto) 1.0 % (0.0-2.0) Erythrocyte Sedimentation Rate 100 MM/HR (0-30) H Sodium Level 140 MMOL/L (136-145) Potassium Level 3.9 MMOL/L (3.5-5.1) Chloride Level 103 MMOL/L (98-107) Carbon Dioxide Level 29 MMOL/L (21-32) Anion Gap 8 mmol/L (5-15) Blood Urea Nitrogen 14 mg/dL (7-18) Creatinine 1.0 MG/DL (0.55-1.30) Estimat Glomerular Filtration Rate 55.1 mL/min (>60) Glucose Level 134 MG/DL (74-106) H Calcium Level 9.9 MG/DL (8.5-10.1) Phosphorus Level 7.4 MG/DL (2.5-4.9) H Magnesium Level 1.9 MG/DL (1.8-2.4) Total Bilirubin 0.2 MG/DL (0.2-1.0) Aspartate Amino Transf (AST/SGOT) 18 U/L (15-37) Alanine Aminotransferase (ALT/SGPT) 16 U/L (12-78) Alkaline Phosphatase 62 U/L (46-116) C-Reactive Protein, Quantitative 1.7 mg/dL (0.00-0.90) H Total Protein 7.4 G/DL (6.4-8.2) Albumin 3.1 G/DL (3.4-5.0) L Globulin 4.3 g/dL Albumin/Globulin Ratio 0.7 (1.0-2.7) L Microbiology Date/Time Source Procedure Growth Status 06/26/20 13:40 Nasopharynx SARS-CoV-2 RdRp Gene Assay - Final Complete Intake and Output 06/27/20 06/28/20 19:00 07:00 Intake Total 500 ml 590 ml Balance 500 ml 590 ml Intake Oral 500 ml 480 ml IV Total 110 ml # Voids 2 3 Objective PHYSICAL EXAMINATION: GENERAL: The patient is a well-developed, well-nourished female, in no apparent distress. HEENT: Eyes, pupils equal and responsive to light and accommodation. Extraocular movements are intact. Left facial swelling and erythema NECK: Supple. No lymphadenopathy. CHEST: Lungs are clear to auscultation bilaterally without wheezes or rales. CARDIOVASCULAR: Regular rate. S1, S2 normal without murmurs, rubs, or gallops. ABDOMEN: Soft, nontender, and nondistended. Positive bowel sounds. No evidence of hepatosplenomegaly. Currently no rebound or guarding noted. EXTREMITIES: Negative for clubbing, cyanosis, or edema. RECTAL/GENITAL: Not performed. NEUROLOGIC: Cranial nerves II through XII are grossly intact without focal deficits. Motor strength is 5/5 bilaterally. Deep tendon reflexes are 2+, plantar. Assessment/Plan Assessment/Plan ASSESSMENT: This is a 70-year-old female. 1. Left facial cellulitis. 2. Hypertension. 3. Diabetes type 2. 4. Tooth abscess-failed oral antibiotic TREATMENT: 1. Left facial cellulitis. ABX=Vanco and unasyn. S/P cefepime. An infectious disease consultation has been obtained with Dr. Gray. We will follow recommendations of Infectious Disease. 2. Hypertension. Continue amlodipine as above. 3. Diabetes type 2. NovoLog sliding scale has been instituted. Sebas Oliveros MD Jun 28, 2020 15:04
[2020-06-28 16:00] VITALS: BP 136/65
[2020-06-28] MEDS: Vancomycin 500 MG in NS 110 ML IVPB SCH (17:42)
[2020-06-28 20:00] VITALS: BP_SYST 109; BP_SYST 147; BP_DIAS 44; BP_DIAS 71
[2020-06-29] VITALS: BP 151/71
[2020-06-29] MEDS: Ampicillin/Sulbactam Sod 3 GM in NS 110 ML IVPB SCH ×4 (00:28→17:50)
[2020-06-29 04:00] VITALS: BP 160/72
[2020-06-29] MEDS: NovoLOG Insulin Flexpen SUBQ SCH ×4 (05:39→20:59)
[2020-06-29 07:25] LABS: BASOPHILS % (AUTO) 1.1 % (0.0-2.0); EOSINOPHILS % (AUTO) 4.2 % (0.0-3.0); HEMATOCRIT 29.1 % (37.0-47.0); HEMOGLOBIN 9.8 G/DL (12.0-16.0); LYMPHOCYTES % (AUTO) 33.6 % (20.0-45.0); MEAN CORPUSCULAR VOLUME 86 FL (80-99); MONOCYTES % (AUTO) 8.3 % (1.0-10.0); NEUTROPHILS % (AUTO) 52.8 % (45.0-75.0); PLATELET COUNT 388 K/UL (150-450); RED BLOOD COUNT 3.38 M/UL (4.20-5.40); RED CELL DISTRIBUTION WIDTH 12.2 % (11.6-14.8); WHITE BLOOD COUNT 6.9 K/UL (4.8-10.8)
[2020-06-29 07:33] LABS: ANION GAP 7 mmol/L (5-15); BLOOD UREA NITROGEN 13 mg/dL (7-18); CALCIUM 9.2 MG/DL (8.5-10.1); CARBON DIOXIDE 30 MMOL/L (21-32); CHLORIDE 106 MMOL/L (98-107); POTASSIUM 3.7 MMOL/L (3.5-5.1); SODIUM 143 MMOL/L (136-145)
[2020-06-29 08:00] VITALS: BP 145/77
[2020-06-29] MEDS: Heparin 5000 units/ml inj SUBQ SCH ×2 (09:18→21:02)
[2020-06-29 12:00] VITALS: BP 187/77
[2020-06-29] MEDS ORDERED: NS 275ml ONE (15:30)
[2020-06-29 16:00] VITALS: BP 128/74
--- NOTE | 2020-06-29 16:01 | Internal Med Progress Note ---
Subjective Date of Service: Jun 29, 2020 Physician Name Sebas Oliveros Attending Physician Nish Phillips MD Current Medications Medications (Trade) Dose Ordered Sig/Crystal Route PRN Reason Start Time Stop Time Status Last Admin Dose Admin Acetaminophen (Tylenol) 650 mg Q4H PRN ORAL fever 06/26/20 14:15 07/26/20 14:14 06/27/20 21:52 Albuterol/ Ipratropium (Albuterol/ Ipratropium) 3 ml Q4H PRN HHN Shortness of Breath 06/26/20 14:15 07/01/20 14:14 Amlodipine Besylate (Norvasc) 5 mg DAILY ORAL 06/27/20 09:00 07/27/20 08:59 06/29/20 09:18 Ampicillin Sodium/ Sulbactam Sodium 3 gm/Sodium Chloride 110 ml @ 220 mls/hr Q6HR IVPB 06/27/20 18:00 07/04/20 17:59 06/29/20 12:26 Clonidine HCl (Catapres Tab) 0.1 mg Q6H PRN ORAL For High Blood Pressure 06/26/20 15:45 09/24/20 15:44 06/29/20 12:27 Dextrose (Dextrose 50%) 25 ml Q30M PRN IV Hypoglycemia 06/26/20 14:15 09/24/20 14:14 Dextrose (Dextrose 50%) 50 ml Q30M PRN IV Hypoglycemia 06/26/20 14:15 09/24/20 14:14 Heparin Sodium (Porcine) (Heparin 5000 units/ml) 5,000 units EVERY 12 HOURS SUBQ 06/26/20 21:00 08/10/20 20:59 06/29/20 09:18 Insulin Aspart (NovoLOG) BEFORE MEALS AND HS SUBQ 06/26/20 16:30 09/24/20 16:29 06/28/20 21:44 Iohexol (OMNIPAQUE-300 100ml) 100 ml ONCE PRN INJ RADIOLOGY 06/27/20 16:15 06/29/20 16:14 Nitroglycerin (Ntg) 0.4 mg Q5M PRN SL Prn Chest Pain 06/26/20 14:15 07/26/20 14:14 Ondansetron HCl (Zofran) 4 mg Q6H PRN IVP Nausea & Vomiting 06/26/20 14:15 07/26/20 14:14 Polyethylene Glycol (Miralax) 17 gm DAILYPRN PRN ORAL Constipation 06/26/20 14:15 07/26/20 14:14 Temazepam (Restoril) 15 mg HSPRN PRN ORAL Insomnia 06/26/20 14:15 07/03/20 14:14 Vancomycin HCl (Vanco pharmacy to dose) 1 ea DAILY PRN MISC per rx protocol 06/26/20 14:30 07/26/20 14:29 Vancomycin HCl 500 mg/Sodium Chloride 110 ml @ 110 mls/hr Q24H IVPB 06/27/20 18:00 07/02/20 17:59 06/28/20 17:42 Allergies: Coded Allergies: No Known Allergies (Unverified , 03/01/18) ROS Limited/Unobtainable: No Constitutional: Reports: no symptoms HEENT: Reports: no symptoms Cardiovascular: Reports: no symptoms Respiratory: Reports: no symptoms Gastrointestinal/Abdominal: Reports: no symptoms Genitourinary: Reports: no symptoms Neurologic/Psychiatric: Reports: no symptoms Subjective 70 YO F admitted with left facial swelling. Now cellulitis left face. Cover for Int Med-Dr Phillips Objective Last Vital Signs Date Time Temp Pulse Resp B/P (MAP) Pulse Ox O2 Delivery O2 Flow Rate FiO2 06/29/20 12:27 187/77 06/29/20 12:00 97.7 71 18 99 06/29/20 09:00 Room Air Laboratory Tests Test 06/29/20 06:45 White Blood Count 6.9 K/UL (4.8-10.8) Red Blood Count 3.38 M/UL (4.20-5.40) L Hemoglobin 9.8 G/DL (12.0-16.0) L Hematocrit 29.1 % (37.0-47.0) L Mean Corpuscular Volume 86 FL (80-99) Mean Corpuscular Hemoglobin 29.0 PG (27.0-31.0) Mean Corpuscular Hemoglobin Concent 33.7 G/DL (32.0-36.0) Red Cell Distribution Width 12.2 % (11.6-14.8) Platelet Count 388 K/UL (150-450) Mean Platelet Volume 6.4 FL (6.5-10.1) L Neutrophils (%) (Auto) 52.8 % (45.0-75.0) Lymphocytes (%) (Auto) 33.6 % (20.0-45.0) Monocytes (%) (Auto) 8.3 % (1.0-10.0) Eosinophils (%) (Auto) 4.2 % (0.0-3.0) H Basophils (%) (Auto) 1.1 % (0.0-2.0) Sodium Level 143 MMOL/L (136-145) Potassium Level 3.7 MMOL/L (3.5-5.1) Chloride Level 106 MMOL/L (98-107) Carbon Dioxide Level 30 MMOL/L (21-32) Anion Gap 7 mmol/L (5-15) Blood Urea Nitrogen 13 mg/dL (7-18) Creatinine 1.0 MG/DL (0.55-1.30) Estimat Glomerular Filtration Rate 55.1 mL/min (>60) Glucose Level 126 MG/DL (74-106) H Calcium Level 9.2 MG/DL (8.5-10.1) Intake and Output 06/28/20 06/29/20 18:59 06:59 Intake Total 960 ml 480 ml Balance 960 ml 480 ml Intake Oral 960 ml 480 ml # Voids 2 2 Objective PHYSICAL EXAMINATION: GENERAL: The patient is a well-developed, well-nourished female, in no apparent distress. HEENT: Eyes, pupils equal and responsive to light and accommodation. Extraocular movements are intact. Left facial swelling and erythema NECK: Supple. No lymphadenopathy. CHEST: Lungs are clear to auscultation bilaterally without wheezes or rales. CARDIOVASCULAR: Regular rate. S1, S2 normal without murmurs, rubs, or gallops. ABDOMEN: Soft, nontender, and nondistended. Positive bowel sounds. No evidence of hepatosplenomegaly. Currently no rebound or guarding noted. EXTREMITIES: Negative for clubbing, cyanosis, or edema. RECTAL/GENITAL: Not performed. NEUROLOGIC: Cranial nerves II through XII are grossly intact without focal deficits. Motor strength is 5/5 bilaterally. Deep tendon reflexes are 2+, plantar. Assessment/Plan Assessment/Plan ASSESSMENT: This is a 70-year-old female. 1. Left facial cellulitis. 2. Hypertension. 3. Diabetes type 2. 4. Tooth abscess-failed oral antibiotic TREATMENT: 1. Left facial cellulitis. ABX=Vanco and unasyn. S/P cefepime. An infectious disease consultation has been obtained with Dr. Gray. We will follow recommendations of Infectious Disease. 2. Hypertension. Continue amlodipine as above. 3. Diabetes type 2. NovoLog sliding scale has been instituted. Sebas Oliveros MD Jun 29, 2020 16:01
[2020-06-29 20:00] VITALS: BP 179/76
[2020-06-29] MEDS: Vancomycin 1gm in D5W 275ml IVPB SCH (20:05)
--- NOTE | 2020-06-29 21:48 | Diagnostic Imaging Report ---
CT MAXILLOFACIAL HISTORY: Left facial swelling rule out abscess 130.1 TECHNIQUE: One or more of the following dose reduction techniques were used: automated exposure control, adjustment of the mA and/or kV according to patient size, use of iterative reconstruction technique. Axial CT images of the facial bones obtained with intravenous contrast with coronal and sagittal reconstructions. 99 cc of Omnipaque 300 injected intravenously. One or more of the following dose reduction techniques were used: automated exposure control, adjustment of the mA and/or kV according to patient size, use of iterative reconstruction technique. Total Exam volume computed tomography dose index (CTDIvol) = mGy and Dose Length Product (DLP) = 399.7mGY-c COMPARISON: None FINDINGS: Soft tissue edema adjacent to the left mandible and maxilla with no enhancing fluid collections appreciated. No acute intracranial findings. No acute facial bone fractures appreciated. Mild atherosclerotic disease of the carotid arteries. Mild mucosal thickening of the maxillary and ethmoid sinuses. Orbital structures are unremarkable. There is evidence of dental caries. Cervical spine is unremarkable. No significant lymphadenopathy. No acute facial bone fractures. Submandibular glands and parotid glands are unremarkable. IMPRESSION: Left-sided facial soft tissue swelling without enhancing abscess. Evidence of dental caries demonstrated. Mild maxillary sinus mucosal thickening. Mild atherosclerotic disease.
[2020-06-30] VITALS: BP 130/61
[2020-06-30] MEDS: Ampicillin/Sulbactam Sod 3 GM in NS 110 ML IVPB SCH ×4 (00:08→18:16)
[2020-06-30 04:00] VITALS: BP 136/64
[2020-06-30] MEDS: NovoLOG Insulin Flexpen SUBQ SCH ×4 (06:30→21:00)
[2020-06-30 06:56] LABS: BASOPHILS % (AUTO) 1.1 % (0.0-2.0); EOSINOPHILS % (AUTO) 4.8 % (0.0-3.0); HEMATOCRIT 30.2 % (37.0-47.0); LYMPHOCYTES % (AUTO) 34.6 % (20.0-45.0); MEAN CORPUSCULAR VOLUME 87 FL (80-99); MONOCYTES % (AUTO) 8.2 % (1.0-10.0); NEUTROPHILS % (AUTO) 51.3 % (45.0-75.0); PLATELET COUNT 396 K/UL (150-450); RED BLOOD COUNT 3.49 M/UL (4.20-5.40); WHITE BLOOD COUNT 6.3 K/UL (4.8-10.8)
[2020-06-30 07:24] LABS: ANION GAP 8 mmol/L (5-15); BLOOD UREA NITROGEN 13 mg/dL (7-18); CALCIUM 9.2 MG/DL (8.5-10.1); CARBON DIOXIDE 29 MMOL/L (21-32); CHLORIDE 105 MMOL/L (98-107); CREATININE 0.9 MG/DL (0.55-1.30); POTASSIUM 3.9 MMOL/L (3.5-5.1); SODIUM 142 MMOL/L (136-145)
[2020-06-30 08:00] VITALS: BP 139/62
[2020-06-30] MEDS: Heparin 5000 units/ml inj SUBQ SCH ×2 (09:01→21:12)
--- NOTE | 2020-06-30 11:43 | Infectious Diseases Prog Note ---
Assessment/Plan Assessment: L face cellulitis 2ry to tooth infection (failed oral antibiotics)- no abscess on imaging; swelling improved but still significant -CT maxillofacial: Left-sided facial soft tissue swelling without enhancing abscess. Evidence of dental caries demonstrated. Mild maxillary sinus mucosal thickening. Mild atherosclerotic disease. -CT neck w/: Questionable slight swelling of the left sternocleidomastoid muscle as compared to contralateral side, could indicate myositis. Correlate with clinical findings. No evidence of abscess. Minimal sinus disease Afebrile No leukocytosis DM2 HTN Asthma Plan: -Continue IV Vancomycin #5 -Continue IV Unasyn #4 (abx d #5) -will keep one more day in house for IV abx; discharge tomorrow on PO Clindamycin 450mg q8hrs for 7 days 06/27 SP cefepime #2 06/26 SP clindamycin x1 -f/u cx -Monitor CBC/CMP, temperatures -aspiration precautions -needs dental f/u upon discharge Thank you for this consultation. Will continue to follow along with you. Discussed with RN. Subjective Allergies: Coded Allergies: No Known Allergies (Unverified , 03/01/18) Objective Last 24 Hour Vital Signs Date Time Temp Pulse Resp B/P (MAP) Pulse Ox O2 Delivery O2 Flow Rate FiO2 06/30/20 09:01 64 139/62 06/30/20 09:00 Room Air 06/30/20 08:00 97.7 64 20 139/62 (87) 98 06/30/20 04:00 98.0 79 18 136/64 (88) 98 06/30/20 00:00 97.9 61 18 130/61 (84) 98 06/29/20 21:00 Room Air 06/29/20 20:49 179/76 06/29/20 20:00 97.9 65 18 179/76 (110) 98 06/29/20 16:00 98.0 90 19 128/74 (92) 98 06/29/20 12:27 187/77 06/29/20 12:00 97.7 71 18 187/77 (113) 99 Height (Feet): 5 Height (Inches): 1.00 Weight (Pounds): 110 Laboratory Tests Test 06/29/20 17:15 06/30/20 05:30 Vancomycin Level Trough 4.0 ug/mL (5.0-12.0) L White Blood Count 6.3 K/UL (4.8-10.8) Red Blood Count 3.49 M/UL (4.20-5.40) L Hemoglobin 10.0 G/DL (12.0-16.0) L Hematocrit 30.2 % (37.0-47.0) L Mean Corpuscular Volume 87 FL (80-99) Mean Corpuscular Hemoglobin 28.6 PG (27.0-31.0) Mean Corpuscular Hemoglobin Concent 33.1 G/DL (32.0-36.0) Red Cell Distribution Width 12.0 % (11.6-14.8) Platelet Count 396 K/UL (150-450) Mean Platelet Volume 6.2 FL (6.5-10.1) L Neutrophils (%) (Auto) 51.3 % (45.0-75.0) Lymphocytes (%) (Auto) 34.6 % (20.0-45.0) Monocytes (%) (Auto) 8.2 % (1.0-10.0) Eosinophils (%) (Auto) 4.8 % (0.0-3.0) H Basophils (%) (Auto) 1.1 % (0.0-2.0) Sodium Level 142 MMOL/L (136-145) Potassium Level 3.9 MMOL/L (3.5-5.1) Chloride Level 105 MMOL/L (98-107) Carbon Dioxide Level 29 MMOL/L (21-32) Anion Gap 8 mmol/L (5-15) Blood Urea Nitrogen 13 mg/dL (7-18) Creatinine 0.9 MG/DL (0.55-1.30) Estimat Glomerular Filtration Rate > 60 mL/min (>60) Glucose Level 122 MG/DL (74-106) H Calcium Level 9.2 MG/DL (8.5-10.1) Current Medications Medications (Trade) Dose Ordered Sig/Crystal Route PRN Reason Start Time Stop Time Status Last Admin Dose Admin Acetaminophen (Tylenol) 650 mg Q4H PRN ORAL fever 06/26/20 14:15 07/26/20 14:14 06/27/20 21:52 Albuterol/ Ipratropium (Albuterol/ Ipratropium) 3 ml Q4H PRN HHN Shortness of Breath 06/26/20 14:15 07/01/20 14:14 Amlodipine Besylate (Norvasc) 5 mg DAILY ORAL 06/27/20 09:00 07/27/20 08:59 06/30/20 09:01 Ampicillin Sodium/ Sulbactam Sodium 3 gm/Sodium Chloride 110 ml @ 220 mls/hr Q6HR IVPB 06/27/20 18:00 07/04/20 17:59 06/30/20 06:27 Clonidine HCl (Catapres Tab) 0.1 mg Q6H PRN ORAL For High Blood Pressure 06/26/20 15:45 09/24/20 15:44 06/29/20 20:49 Dextrose (Dextrose 50%) 25 ml Q30M PRN IV Hypoglycemia 06/26/20 14:15 09/24/20 14:14 Dextrose (Dextrose 50%) 50 ml Q30M PRN IV Hypoglycemia 06/26/20 14:15 09/24/20 14:14 Heparin Sodium (Porcine) (Heparin 5000 units/ml) 5,000 units EVERY 12 HOURS SUBQ 06/26/20 21:00 08/10/20 20:59 06/30/20 09:01 Insulin Aspart (NovoLOG) BEFORE MEALS AND HS SUBQ 06/26/20 16:30 09/24/20 16:29 06/29/20 20:59 Nitroglycerin (Ntg) 0.4 mg Q5M PRN SL Prn Chest Pain 06/26/20 14:15 07/26/20 14:14 Ondansetron HCl (Zofran) 4 mg Q6H PRN IVP Nausea & Vomiting 06/26/20 14:15 07/26/20 14:14 Polyethylene Glycol (Miralax) 17 gm DAILYPRN PRN ORAL Constipation 06/26/20 14:15 07/26/20 14:14 Temazepam (Restoril) 15 mg HSPRN PRN ORAL Insomnia 06/26/20 14:15 07/03/20 14:14 Vancomycin HCl (Vanco pharmacy to dose) 1 ea DAILY PRN MISC per rx protocol 06/26/20 14:30 07/26/20 14:29 Vancomycin HCl 1 gm/Dextrose 275 ml @ 183.708 mls/hr Q24H IVPB 06/29/20 19:00 07/04/20 18:59 06/29/20 20:05 Opal Gray M.D. Jun 30, 2020 11:43
[2020-06-30 12:00] VITALS: BP 143/76
[2020-06-30 16:00] VITALS: BP 136/72
[2020-06-30] MEDS: Vancomycin 1gm in D5W 275ml IVPB SCH (19:22)
--- NOTE | 2020-06-30 19:31 | Internal Med Progress Note ---
Subjective Date of Service: Jun 30, 2020 Physician Name Sebas Oliveros Attending Physician Nish Phillips MD Current Medications Medications (Trade) Dose Ordered Sig/Crystal Route PRN Reason Start Time Stop Time Status Last Admin Dose Admin Acetaminophen (Tylenol) 650 mg Q4H PRN ORAL fever 06/26/20 14:15 07/26/20 14:14 06/27/20 21:52 Albuterol/ Ipratropium (Albuterol/ Ipratropium) 3 ml Q4H PRN HHN Shortness of Breath 06/26/20 14:15 07/01/20 14:14 Amlodipine Besylate (Norvasc) 5 mg DAILY ORAL 06/27/20 09:00 07/27/20 08:59 06/30/20 09:01 Ampicillin Sodium/ Sulbactam Sodium 3 gm/Sodium Chloride 110 ml @ 220 mls/hr Q6HR IVPB 06/27/20 18:00 07/04/20 17:59 06/30/20 18:16 Clonidine HCl (Catapres Tab) 0.1 mg Q6H PRN ORAL For High Blood Pressure 06/26/20 15:45 09/24/20 15:44 06/29/20 20:49 Dextrose (Dextrose 50%) 25 ml Q30M PRN IV Hypoglycemia 06/26/20 14:15 09/24/20 14:14 Dextrose (Dextrose 50%) 50 ml Q30M PRN IV Hypoglycemia 06/26/20 14:15 09/24/20 14:14 Heparin Sodium (Porcine) (Heparin 5000 units/ml) 5,000 units EVERY 12 HOURS SUBQ 06/26/20 21:00 08/10/20 20:59 06/30/20 09:01 Insulin Aspart (NovoLOG) BEFORE MEALS AND HS SUBQ 06/26/20 16:30 09/24/20 16:29 06/30/20 16:51 Nitroglycerin (Ntg) 0.4 mg Q5M PRN SL Prn Chest Pain 06/26/20 14:15 07/26/20 14:14 Ondansetron HCl (Zofran) 4 mg Q6H PRN IVP Nausea & Vomiting 06/26/20 14:15 07/26/20 14:14 Polyethylene Glycol (Miralax) 17 gm DAILYPRN PRN ORAL Constipation 06/26/20 14:15 07/26/20 14:14 06/30/20 16:50 Temazepam (Restoril) 15 mg HSPRN PRN ORAL Insomnia 06/26/20 14:15 07/03/20 14:14 Vancomycin HCl (Vanco pharmacy to dose) 1 ea DAILY PRN MISC per rx protocol 06/26/20 14:30 07/26/20 14:29 Vancomycin HCl 1 gm/Dextrose 275 ml @ 183.708 mls/hr Q24H IVPB 06/29/20 19:00 07/04/20 18:59 06/30/20 19:22 Allergies: Coded Allergies: No Known Allergies (Unverified , 03/01/18) ROS Limited/Unobtainable: No Constitutional: Reports: no symptoms HEENT: Reports: no symptoms Cardiovascular: Reports: no symptoms Respiratory: Reports: no symptoms Gastrointestinal/Abdominal: Reports: no symptoms Genitourinary: Reports: no symptoms Neurologic/Psychiatric: Reports: no symptoms Subjective 70 YO F admitted with left facial swelling. Now cellulitis left face. Cover for Int Angel-Dr Phillips Objective Last Vital Signs Date Time Temp Pulse Resp B/P (MAP) Pulse Ox O2 Delivery O2 Flow Rate FiO2 06/30/20 16:00 98.3 61 17 136/72 (93) 98 06/30/20 09:00 Room Air Laboratory Tests Test 06/30/20 05:30 06/30/20 11:50 06/30/20 16:42 White Blood Count 6.3 K/UL (4.8-10.8) Red Blood Count 3.49 M/UL (4.20-5.40) L Hemoglobin 10.0 G/DL (12.0-16.0) L Hematocrit 30.2 % (37.0-47.0) L Mean Corpuscular Volume 87 FL (80-99) Mean Corpuscular Hemoglobin 28.6 PG (27.0-31.0) Mean Corpuscular Hemoglobin Concent 33.1 G/DL (32.0-36.0) Red Cell Distribution Width 12.0 % (11.6-14.8) Platelet Count 396 K/UL (150-450) Mean Platelet Volume 6.2 FL (6.5-10.1) L Neutrophils (%) (Auto) 51.3 % (45.0-75.0) Lymphocytes (%) (Auto) 34.6 % (20.0-45.0) Monocytes (%) (Auto) 8.2 % (1.0-10.0) Eosinophils (%) (Auto) 4.8 % (0.0-3.0) H Basophils (%) (Auto) 1.1 % (0.0-2.0) Sodium Level 142 MMOL/L (136-145) Potassium Level 3.9 MMOL/L (3.5-5.1) Chloride Level 105 MMOL/L (98-107) Carbon Dioxide Level 29 MMOL/L (21-32) Anion Gap 8 mmol/L (5-15) Blood Urea Nitrogen 13 mg/dL (7-18) Creatinine 0.9 MG/DL (0.55-1.30) Estimat Glomerular Filtration Rate > 60 mL/min (>60) Glucose Level 122 MG/DL (74-106) H Calcium Level 9.2 MG/DL (8.5-10.1) POC Whole Blood Glucose 159 MG/DL (74-106) H 197 MG/DL (74-106) H Intake and Output 06/29/20 06/30/20 19:00 07:00 Intake Total 1440 ml 360 ml Balance 1440 ml 360 ml Intake Oral 1220 ml IV Total 220 ml Other 360 ml # Voids 2 Objective PHYSICAL EXAMINATION: GENERAL: The patient is a well-developed, well-nourished female, in no apparent distress. HEENT: Eyes, pupils equal and responsive to light and accommodation. Extraocular movements are intact. Left facial swelling and erythema NECK: Supple. No lymphadenopathy. CHEST: Lungs are clear to auscultation bilaterally without wheezes or rales. CARDIOVASCULAR: Regular rate. S1, S2 normal without murmurs, rubs, or gallops. ABDOMEN: Soft, nontender, and nondistended. Positive bowel sounds. No evidence of hepatosplenomegaly. Currently no rebound or guarding noted. EXTREMITIES: Negative for clubbing, cyanosis, or edema. RECTAL/GENITAL: Not performed. NEUROLOGIC: Cranial nerves II through XII are grossly intact without focal deficits. Motor strength is 5/5 bilaterally. Deep tendon reflexes are 2+, plantar. Assessment/Plan Assessment/Plan ASSESSMENT: This is a 70-year-old female. 1. Left facial cellulitis-improving 2. Hypertension. 3. Diabetes type 2. 4. Tooth abscess-failed oral antibiotic TREATMENT: 1. Left facial cellulitis. ABX=Vanco and unasyn. S/P cefepime. An infectious disease consultation has been obtained with Dr. Gray. We will follow recommendations of Infectious Disease. 2. Hypertension. Continue amlodipine as above. 3. Diabetes type 2. NovoLog sliding scale has been instituted. Sebas Oliveros MD Jun 30, 2020 19:31
[2020-06-30 20:00] VITALS: BP 182/78
[2020-07-01] VITALS: BP 136/46
[2020-07-01] MEDS: Ampicillin/Sulbactam Sod 3 GM in NS 110 ML IVPB SCH ×4 (00:20→18:00)
[2020-07-01 04:00] VITALS: BP 122/58
[2020-07-01 06:25] LABS: BASOPHILS % (AUTO) 1.1 % (0.0-2.0); EOSINOPHILS % (AUTO) 5.3 % (0.0-3.0); HEMATOCRIT 29.9 % (37.0-47.0); HEMOGLOBIN 9.9 G/DL (12.0-16.0); LYMPHOCYTES % (AUTO) 32.1 % (20.0-45.0); MEAN CORPUSCULAR VOLUME 87 FL (80-99); MONOCYTES % (AUTO) 7.4 % (1.0-10.0); PLATELET COUNT 396 K/UL (150-450); RED BLOOD COUNT 3.45 M/UL (4.20-5.40); RED CELL DISTRIBUTION WIDTH 12.3 % (11.6-14.8); WHITE BLOOD COUNT 6.7 K/UL (4.8-10.8)
[2020-07-01] MEDS: NovoLOG Insulin Flexpen SUBQ SCH ×3 (06:25→16:57)
[2020-07-01 07:11] LABS: ALANINE AMINOTRANSFERASE 55 U/L (12-78); ALBUMIN 3.2 G/DL (3.4-5.0); ALBUMIN/GLOBULIN RATIO 0.8 (1.0-2.7); ALKALINE PHOSPHATASE 62 U/L (46-116); ANION GAP 9 mmol/L (5-15); ASPARTATE AMINO TRANSFERASE 45 U/L (15-37); BILIRUBIN,TOTAL 0.2 MG/DL (0.2-1.0); BLOOD UREA NITROGEN 11 mg/dL (7-18); CALCIUM 9.2 MG/DL (8.5-10.1); CARBON DIOXIDE 29 MMOL/L (21-32); CHLORIDE 103 MMOL/L (98-107); CREATININE 0.9 MG/DL (0.55-1.30); PHOSPHORUS 8.5 MG/DL (2.5-4.9); POTASSIUM 3.6 MMOL/L (3.5-5.1); SODIUM 140 MMOL/L (136-145)
[2020-07-01 08:00] VITALS: BP 149/67
[2020-07-01] MEDS: Heparin 5000 units/ml inj SUBQ SCH (09:16)
--- NOTE | 2020-07-01 11:54 | Infectious Diseases Prog Note ---
Assessment/Plan Assessment: L face cellulitis 2ry to tooth infection (failed oral antibiotics)- no abscess on imaging; swelling improved but still significant -CT maxillofacial: Left-sided facial soft tissue swelling without enhancing abscess. Evidence of dental caries demonstrated. Mild maxillary sinus mucosal thickening. Mild atherosclerotic disease. -CT neck w/: Questionable slight swelling of the left sternocleidomastoid muscle as compared to contralateral side, could indicate myositis. Correlate with clinical findings. No evidence of abscess. Minimal sinus disease Afebrile No leukocytosis DM2 HTN Asthma Plan: -On IV Vancomycin #6 and IV Unasyn #5 (abx d #6) -upon discharge, transition to PO Clindamycin 450mg q8hrs for 7 days ( prescription left in the chart) 06/27 SP cefepime #2 06/26 SP clindamycin x1 -f/u cx -Monitor CBC/CMP, temperatures -aspiration precautions -needs dental f/u upon discharge Thank you for this consultation. Will continue to follow along with you. Discussed with RN. Subjective Allergies: Coded Allergies: No Known Allergies (Unverified , 03/01/18) Objective Last 24 Hour Vital Signs Date Time Temp Pulse Resp B/P (MAP) Pulse Ox O2 Delivery O2 Flow Rate FiO2 07/01/20 09:15 63 156/63 07/01/20 09:00 Room Air 07/01/20 08:00 97.7 62 17 149/67 (94) 98 07/01/20 04:00 98.1 58 17 122/58 (79) 99 07/01/20 00:00 97.9 61 17 136/46 (76) 98 06/30/20 21:22 182/78 06/30/20 21:00 Room Air 06/30/20 20:00 97.9 67 17 182/78 (112) 100 06/30/20 16:00 98.3 61 17 136/72 (93) 98 06/30/20 12:00 97.5 58 18 143/76 (98) 99 Height (Feet): 5 Height (Inches): 1.00 Weight (Pounds): 108 Laboratory Tests Test 06/30/20 16:42 07/01/20 05:40 POC Whole Blood Glucose 197 MG/DL (74-106) H White Blood Count 6.7 K/UL (4.8-10.8) Red Blood Count 3.45 M/UL (4.20-5.40) L Hemoglobin 9.9 G/DL (12.0-16.0) L Hematocrit 29.9 % (37.0-47.0) L Mean Corpuscular Volume 87 FL (80-99) Mean Corpuscular Hemoglobin 28.8 PG (27.0-31.0) Mean Corpuscular Hemoglobin Concent 33.2 G/DL (32.0-36.0) Red Cell Distribution Width 12.3 % (11.6-14.8) Platelet Count 396 K/UL (150-450) Mean Platelet Volume 6.4 FL (6.5-10.1) L Neutrophils (%) (Auto) 54.0 % (45.0-75.0) Lymphocytes (%) (Auto) 32.1 % (20.0-45.0) Monocytes (%) (Auto) 7.4 % (1.0-10.0) Eosinophils (%) (Auto) 5.3 % (0.0-3.0) H Basophils (%) (Auto) 1.1 % (0.0-2.0) Erythrocyte Sedimentation Rate 103 MM/HR (0-30) H Sodium Level 140 MMOL/L (136-145) Potassium Level 3.6 MMOL/L (3.5-5.1) Chloride Level 103 MMOL/L (98-107) Carbon Dioxide Level 29 MMOL/L (21-32) Anion Gap 9 mmol/L (5-15) Blood Urea Nitrogen 11 mg/dL (7-18) Creatinine 0.9 MG/DL (0.55-1.30) Estimat Glomerular Filtration Rate > 60 mL/min (>60) Glucose Level 144 MG/DL (74-106) H Calcium Level 9.2 MG/DL (8.5-10.1) Phosphorus Level 8.5 MG/DL (2.5-4.9) H Magnesium Level 1.8 MG/DL (1.8-2.4) Total Bilirubin 0.2 MG/DL (0.2-1.0) Aspartate Amino Transf (AST/SGOT) 45 U/L (15-37) H Alanine Aminotransferase (ALT/SGPT) 55 U/L (12-78) Alkaline Phosphatase 62 U/L (46-116) C-Reactive Protein, Quantitative 0.6 mg/dL (0.00-0.90) Total Protein 7.2 G/DL (6.4-8.2) Albumin 3.2 G/DL (3.4-5.0) L Globulin 4.0 g/dL Albumin/Globulin Ratio 0.8 (1.0-2.7) L Current Medications Medications (Trade) Dose Ordered Sig/Crystal Route PRN Reason Start Time Stop Time Status Last Admin Dose Admin Acetaminophen (Tylenol) 650 mg Q4H PRN ORAL fever 06/26/20 14:15 07/26/20 14:14 06/27/20 21:52 Albuterol/ Ipratropium (Albuterol/ Ipratropium) 3 ml Q4H PRN HHN Shortness of Breath 06/26/20 14:15 07/01/20 14:14 Amlodipine Besylate (Norvasc) 5 mg DAILY ORAL 06/27/20 09:00 07/27/20 08:59 07/01/20 09:15 Ampicillin Sodium/ Sulbactam Sodium 3 gm/Sodium Chloride 110 ml @ 220 mls/hr Q6HR IVPB 06/27/20 18:00 07/04/20 17:59 07/01/20 06:02 Clonidine HCl (Catapres Tab) 0.1 mg Q6H PRN ORAL For High Blood Pressure 06/26/20 15:45 09/24/20 15:44 06/30/20 21:22 Dextrose (Dextrose 50%) 25 ml Q30M PRN IV Hypoglycemia 06/26/20 14:15 09/24/20 14:14 Dextrose (Dextrose 50%) 50 ml Q30M PRN IV Hypoglycemia 06/26/20 14:15 09/24/20 14:14 Heparin Sodium (Porcine) (Heparin 5000 units/ml) 5,000 units EVERY 12 HOURS SUBQ 06/26/20 21:00 08/10/20 20:59 07/01/20 09:16 Insulin Aspart (NovoLOG) BEFORE MEALS AND HS SUBQ 06/26/20 16:30 09/24/20 16:29 06/30/20 16:51 Nitroglycerin (Ntg) 0.4 mg Q5M PRN SL Prn Chest Pain 06/26/20 14:15 07/26/20 14:14 Ondansetron HCl (Zofran) 4 mg Q6H PRN IVP Nausea & Vomiting 06/26/20 14:15 07/26/20 14:14 Polyethylene Glycol (Miralax) 17 gm DAILYPRN PRN ORAL Constipation 06/26/20 14:15 07/26/20 14:14 06/30/20 16:50 Temazepam (Restoril) 15 mg HSPRN PRN ORAL Insomnia 06/26/20 14:15 07/03/20 14:14 Vancomycin HCl (Vanco pharmacy to dose) 1 ea DAILY PRN MISC per rx protocol 06/26/20 14:30 07/26/20 14:29 Vancomycin HCl 1 gm/Dextrose 275 ml @ 183.708 mls/hr Q24H IVPB 06/29/20 19:00 07/04/20 18:59 06/30/20 19:22 Opal Gray M.D. Jul 01, 2020 11:54
[2020-07-01 12:00] VITALS: BP 144/71
[2020-07-01 16:00] VITALS: BP 151/71
[2020-07-01] MEDS ORDERED: [UNRECOGNIZED DRUG - OTHER] (17:41)
[2020-07-01] MEDS ORDERED: CLINDAMYCIN HC150 MG ORAL (17:41)
--- NOTE | 2020-07-01 17:49 | Internal Med Progress Note ---
Subjective Date of Service: Jul 01, 2020 Physician Name Sebas Oliveros Attending Physician Nish Phillips MD Current Medications Medications (Trade) Dose Ordered Sig/Crystal Route PRN Reason Start Time Stop Time Status Last Admin Dose Admin Acetaminophen (Tylenol) 650 mg Q4H PRN ORAL fever 06/26/20 14:15 07/26/20 14:14 06/27/20 21:52 Amlodipine Besylate (Norvasc) 5 mg DAILY ORAL 06/27/20 09:00 07/27/20 08:59 07/01/20 09:15 Ampicillin Sodium/ Sulbactam Sodium 3 gm/Sodium Chloride 110 ml @ 220 mls/hr Q6HR IVPB 06/27/20 18:00 07/04/20 17:59 07/01/20 11:57 Clonidine HCl (Catapres Tab) 0.1 mg Q6H PRN ORAL For High Blood Pressure 06/26/20 15:45 09/24/20 15:44 06/30/20 21:22 Dextrose (Dextrose 50%) 25 ml Q30M PRN IV Hypoglycemia 06/26/20 14:15 09/24/20 14:14 Dextrose (Dextrose 50%) 50 ml Q30M PRN IV Hypoglycemia 06/26/20 14:15 09/24/20 14:14 Heparin Sodium (Porcine) (Heparin 5000 units/ml) 5,000 units EVERY 12 HOURS SUBQ 06/26/20 21:00 08/10/20 20:59 07/01/20 09:16 Insulin Aspart (NovoLOG) BEFORE MEALS AND HS SUBQ 06/26/20 16:30 09/24/20 16:29 07/01/20 16:57 Nitroglycerin (Ntg) 0.4 mg Q5M PRN SL Prn Chest Pain 06/26/20 14:15 07/26/20 14:14 Ondansetron HCl (Zofran) 4 mg Q6H PRN IVP Nausea & Vomiting 06/26/20 14:15 07/26/20 14:14 Polyethylene Glycol (Miralax) 17 gm DAILYPRN PRN ORAL Constipation 06/26/20 14:15 07/26/20 14:14 06/30/20 16:50 Temazepam (Restoril) 15 mg HSPRN PRN ORAL Insomnia 06/26/20 14:15 07/03/20 14:14 Vancomycin HCl (Vanco pharmacy to dose) 1 ea DAILY PRN MISC per rx protocol 06/26/20 14:30 07/26/20 14:29 Vancomycin HCl 1 gm/Dextrose 275 ml @ 183.708 mls/hr Q24H IVPB 06/29/20 19:00 07/04/20 18:59 06/30/20 19:22 Allergies: Coded Allergies: No Known Allergies (Unverified , 03/01/18) ROS Limited/Unobtainable: No Constitutional: Reports: no symptoms HEENT: Reports: no symptoms Cardiovascular: Reports: no symptoms Respiratory: Reports: no symptoms Gastrointestinal/Abdominal: Reports: no symptoms Genitourinary: Reports: no symptoms Neurologic/Psychiatric: Reports: no symptoms Subjective 70 YO F admitted with left facial swelling. Now cellulitis left face. Cover for Int Angel-Dr Phillips Objective Last Vital Signs Date Time Temp Pulse Resp B/P (MAP) Pulse Ox O2 Delivery O2 Flow Rate FiO2 07/01/20 16:00 98.1 61 18 151/71 (97) 99 07/01/20 09:00 Room Air Laboratory Tests Test 07/01/20 05:40 White Blood Count 6.7 K/UL (4.8-10.8) Red Blood Count 3.45 M/UL (4.20-5.40) L Hemoglobin 9.9 G/DL (12.0-16.0) L Hematocrit 29.9 % (37.0-47.0) L Mean Corpuscular Volume 87 FL (80-99) Mean Corpuscular Hemoglobin 28.8 PG (27.0-31.0) Mean Corpuscular Hemoglobin Concent 33.2 G/DL (32.0-36.0) Red Cell Distribution Width 12.3 % (11.6-14.8) Platelet Count 396 K/UL (150-450) Mean Platelet Volume 6.4 FL (6.5-10.1) L Neutrophils (%) (Auto) 54.0 % (45.0-75.0) Lymphocytes (%) (Auto) 32.1 % (20.0-45.0) Monocytes (%) (Auto) 7.4 % (1.0-10.0) Eosinophils (%) (Auto) 5.3 % (0.0-3.0) H Basophils (%) (Auto) 1.1 % (0.0-2.0) Erythrocyte Sedimentation Rate 103 MM/HR (0-30) H Sodium Level 140 MMOL/L (136-145) Potassium Level 3.6 MMOL/L (3.5-5.1) Chloride Level 103 MMOL/L (98-107) Carbon Dioxide Level 29 MMOL/L (21-32) Anion Gap 9 mmol/L (5-15) Blood Urea Nitrogen 11 mg/dL (7-18) Creatinine 0.9 MG/DL (0.55-1.30) Estimat Glomerular Filtration Rate > 60 mL/min (>60) Glucose Level 144 MG/DL (74-106) H Calcium Level 9.2 MG/DL (8.5-10.1) Phosphorus Level 8.5 MG/DL (2.5-4.9) H Magnesium Level 1.8 MG/DL (1.8-2.4) Total Bilirubin 0.2 MG/DL (0.2-1.0) Aspartate Amino Transf (AST/SGOT) 45 U/L (15-37) H Alanine Aminotransferase (ALT/SGPT) 55 U/L (12-78) Alkaline Phosphatase 62 U/L (46-116) C-Reactive Protein, Quantitative 0.6 mg/dL (0.00-0.90) Total Protein 7.2 G/DL (6.4-8.2) Albumin 3.2 G/DL (3.4-5.0) L Globulin 4.0 g/dL Albumin/Globulin Ratio 0.8 (1.0-2.7) L Intake and Output 06/30/20 07/01/20 19:00 07:00 Intake Total 1010 ml 735.000 ml Balance 1010 ml 735.000 ml Intake Oral 240 ml IV Total 110 ml 495.000 ml Other 900 ml # Voids 2 Objective PHYSICAL EXAMINATION: GENERAL: The patient is a well-developed, well-nourished female, in no apparent distress. HEENT: Eyes, pupils equal and responsive to light and accommodation. Extraocular movements are intact. Left facial swelling and erythema NECK: Supple. No lymphadenopathy. CHEST: Lungs are clear to auscultation bilaterally without wheezes or rales. CARDIOVASCULAR: Regular rate. S1, S2 normal without murmurs, rubs, or gallops. ABDOMEN: Soft, nontender, and nondistended. Positive bowel sounds. No evidence of hepatosplenomegaly. Currently no rebound or guarding noted. EXTREMITIES: Negative for clubbing, cyanosis, or edema. RECTAL/GENITAL: Not performed. NEUROLOGIC: Cranial nerves II through XII are grossly intact without focal deficits. Motor strength is 5/5 bilaterally. Deep tendon reflexes are 2+, plantar. Assessment/Plan Assessment/Plan 4. ASSESSMENT: This is a 70-year-old female. 1. Left facial cellulitis-improving 2. Hypertension. 3. Diabetes type 2. 4. Tooth abscess-failed oral antibiotic TREATMENT: 1. Left facial cellulitis. ABX=Vanco and unasyn. S/P cefepime. An infectious disease consultation has been obtained with Dr. Gray. We will follow recommendations of Infectious Disease. 2. Hypertension. Continue amlodipine as above. 3. Diabetes type 2. NovoLog sliding scale has been instituted. 4. Discharge home on oral clindamycin today Sebas Oliveros MD Jul 01, 2020 17:49
[2020-07-01] MEDS: Vancomycin 1gm in D5W 275ml IVPB SCH (19:00)
--- NOTE | 2020-07-04 08:46 | Discharge Summary ---
Discharge Summary Discharge Summary _ DATE OF ADMISSION: 06/26/2020 DATE OF DISCHARGE: 07/01/2020 DISCHARGED BY: Dr. Phillips REASON FOR ADMISSION: 70 years old female with past medical history of diabetes mellitus, hypertension , asthma, presented to emergency department due to concern for left facial cellulitis refractory to oral antibiotics. Patient reported left facial swelling. Patient recently seen her dentist due to left facial swelling. Patient received Keflex, which did not improve her symptoms. Patient seen her dentist again, who asked patient to come to emergency room for further evaluation. Patient reported pain with chewing. No chest pain, She denied fever and chills. Upon evaluation blood pressure was slightly elevated 167/65. CT of the neck revealed questionable slight swelling of the left sternocleidomastoid muscle as compared to contralateral side could indicating possible myositis. Laboratory work-up revealed no leukocytosis ,hemoglobin 10.7 ,hematocrit 33.3. Stable electrolytes. BUN 25, creatinine 1.0. Glucose 167. Rapid COVID-19 was negative. In emergency department patient received a liter of fluid , empiric antibiotic, steroid and admitted for further management. CONSULTANTS: ID specialist Dr. Gray [facility] COURSE: Patient admitted to medical surgical floor and started on broad spectrum antibiotics. ID specialist followed. Maxillofacial CT revealed left-sided facial soft tissue swelling without enhancing abscess. Evidence of dental caries. IV antibiotic provided as per ID recommendation with vancomycin and Unasyn. Upon discharge patient changed to oral antibiotic to complete the course. CRP 1.7, ESR 100. Patient remained afebrile ,no leukocytosis. Blood pressure was managed with calcium channel regis. Blood sugar was managed with sliding scale of insulin. Diabetic diet and diabetic teaching provided. Supplemental oxygen and albuterol inhaler were on board as needed. No evidence of asthma exacerbation . DVT prophylaxis provided. Supportive care provided. Patient clinically stabilized and was ready for for discharge home.. Patient will need outpatient follow-up with dentist. FINAL DIAGNOSES: Left facial cellulitis secondary to tooth infection/failed oral antibiotic therapy Diabetes mellitus Hypertension Asthma DISCHARGE MEDICATIONS: See Medication Reconciliation list. DISCHARGE INSTRUCTIONS: Patient was discharged home. Patient will need to follow-up with the dentist as outpatient Follow-up with a primary care provider in 1 week. I have been assigned to dictate discharge summary for this account. I was not involved in the patient's management. Geetha Lewis NP Jul 04, 2020 08:45
== END 2020-07-01 19:40 | disposition home or self-care (01) | DRG 383 ==
LOC: EMR 11:43 → 4E 11:45 → EDBEDREQ 13:48 → 4E 06-29 13:51
DX: L03.211 Cellulitis of face (principal); E11.9 Type 2 diabetes mellitus without complications; I10 Essential (primary) hypertension; K04.7 Periapical abscess without sinus; Z79.84 Long term (current) use of oral hypoglycemic drugs; J45.909 Unspecified asthma, uncomplicated
CPT/HCPCS: 36415; 70487; 70491; 80048; 80053; 80202; 81003; 82962; 83690; 83735; 84100; 85025; 85610; 85651; 85730; 86140; 96365; 96375; 99291; J1815; J7030; S0077; U0002